=== PATIENT | female | born 1950 ===

== ENCOUNTER 2016-11-10 18:17 | Inpatient (IN) | payer MEDICARE ==
[2016-11-10 18:25] VITALS: BMI 36.6
[2016-11-10] MEDS ORDERED: Sodium Chloride 0.9% 1,000 ML IV STA (18:54)
[2016-11-10 19:41] LABS: BASO # 0.1 K/uL (0.0-0.2); BASO % 0.7 % (0.0-2.0); EOS # 0.6 K/uL (0.0-0.7); EOS % 8.7 % (0.0-4.0); HEMATOCRIT 38.5 % (34.0-47.0); LYMPH # 1.7 K/uL (1.0-4.3); LYMPH % 22.6 % (20.0-40.0); MEAN CELL VOLUME 89.7 fl (81.0-99.0); MEAN CORPUSCULAR HEMOGLOBIN 29.7 pg (27.0-31.0); MEAN CORPUSCULAR HGB CONC 33.1 g/dL (33.0-37.0); MEAN PLATELET VOLUME 7.8 fl (7.2-11.7); MONO # 0.6 K/uL (0.0-0.8); MONO % 8.5 % (0.0-10.0); NEUT # 4.3 K/uL (1.8-7.0); NEUT % 59.5 % (50.0-75.0); RED CELL DISTRIBUTION WIDTH 13.1 % (11.5-14.5); WHITE BLOOD COUNT 7.3 K/uL (4.8-10.8)
[2016-11-10] MEDS ORDERED: cefTRIAXone (Rocephin) 1 gm Inj ONE (19:46)
--- NOTE | 2016-11-10 19:48 | ED PDOC ---
HPI: General Adult Time Seen by Provider: 11/10/16 18:43 Chief Complaint (Nursing): Flu-like Symptoms Chief Complaint (Provider): Fever, Generalized Body Aches, & Productive Cough History Per: Patient History/Exam Limitations: no limitations Onset/Duration Of Symptoms: Days (ongoing for the past 8 days), Persistent Have you had recent travel within the past 21 days to any of the following countries: [place], [place], [place] or [place]?: Yes Other Location:: [facility] Current Symptoms Are (Timing): Still Present Severity: Moderate Context: patient referred from dr. figueredo's office for flu-like symptoms Location: generalized body aches, inclusive of diffuse chest and back pain Quality: pleuritic pain with a deep breath, worsened with lying flat Additional Complaint(s): Brittany Ulloa is a 66 year old female, with a past medical history of asthma and hypertension, who presents to the emergency department s/p being referred from Dr. Figueredo's office for a fever, generalized body aches, and a productive cough , that the patient has persistently been experiencing for the past 8 days. Patient reportedly takes baby Aspirin and Enalapril for her hypertension. Associated chills, diffuse, pleuritic chest pain, back pain, and shortness of breath, that is exacerbated when lying flat, are currently present. Denies nausea, vomiting, or diarrhea. Of note, patient uses an Albuterol pump as needed. PMD: Db Figueredo Past Medical History Reviewed: Historical Data, Nursing Documentation, Vital Signs Vital Signs: Last Vital Signs Temp 98.3 F 11/10/16 18:25 Pulse 105 H 11/10/16 18:25 Resp 19 11/10/16 18:25 BP 155/63 H 11/10/16 18:25 Pulse Ox 96 11/10/16 20:04 - Medical History PMH: Arthritis, Asthma, HTN, Hypercholesterolemia, Hyperlipidemia Denies: Chronic Kidney Disease - Surgical History Surgical History: Other surgeries: Total R Knee Replacement (06/07/2016) - Family History Family History: States: Hypertension, Other Other Family History: Pancreatic Cancer (mother) - Living Arrangements Living Arrangements: Alone - Social History Current smoker - smoking cessation education provided: No Ex-Smoker (has not smoked in the last 12 months): No Alcohol: None Drugs: Denies - Immunization History Hx Tetanus Toxoid Vaccination: No Hx Influenza Vaccination: Yes Hx Pneumococcal Vaccination: Yes - Home Medications Home Medications: Ambulatory Orders Medication Instructions Recorded Enalapril Maleate [Vasotec] 20 mg PO BID 07/25/15 Albuterol 0.083% [Albuterol 0.083% 3 ml IH TID PRN 08/06/15 Inhal Dee (2.5 mg/3 ml) UD] Albuterol HFA [Ventolin HFA 90 2 puff IH Q4H PRN 08/06/15 mcg/actuation (8 g)] Aspirin [[place] Aspirin] 81 mg PO DAILY 08/06/15 Atorvastatin Calcium [Lipitor] 10 mg PO HS 08/06/15 Ergocalciferol (Vitamin D2) 50,000 unit PO MO 08/06/15 [Vitamin D2] Fluticasone Propionate [Flonase] 1 spray REINALDO BID PRN 08/06/15 Omeprazole [Prilosec] 40 mg PO DAILY 08/06/15 Lactobacillus Acidophilus 1 each PO BID #60 capsule 08/09/15 [Acidophilus Lactobacillus] Methylprednisolone [Medrol Dose 4 mg PO DAILY #21 mg 08/09/15 Pack (21 tabs)] Celecoxib [celeBREX] 200 mg PO Q12 cap 06/09/16 Docusate [Colace] 100 mg PO BID cap 06/09/16 Ferrous Sulfate [Feosol] 325 mg PO BID tab 06/09/16 oxyCODONE [oxyCONTIN Extended 10 mg PO Q12 tabsr 06/09/16 Release Tab] oxyCODONE/Acetaminophen [Percocet 1 tab PO Q4 PRN #0 tab 06/09/16 5/325 mg Tab] Mirtazapine [Remeron] 7.5 mg PO HS 06/23/16 Pantoprazole [Protonix] 40 mg PO DAILY 06/23/16 - Allergies Allergies/Adverse Reactions: Allergies Allergy/AdvReac Type Severity Reaction Status Date / Time No Known Allergies Allergy Verified 06/09/16 14:46 Review of Systems ROS Statement: Except As Marked, All Systems Reviewed And Found Negative Constitutional: Positive for: Fever, Chills, Other (generalized body aches) Cardiovascular: Positive for: Chest Pain (diffuse) Respiratory: Positive for: Cough, Shortness of Breath, Pleuritic Pain, Sputum Gastrointestinal: Negative for: Nausea, Vomiting, Diarrhea Musculoskeletal: Positive for: Back Pain Physical Exam - Reviewed Nursing Documentation Reviewed: Yes Vital Signs Reviewed: Yes - Physical Exam Appears: Positive for: Well, Non-toxic, No Acute Distress Head Exam: Positive for: ATRAUMATIC, NORMOCEPHALIC Skin: Positive for: Normal Color, Warm, Dry ENT: Positive for: Normal ENT Inspection, Other (moist mucous membranes). Negative for: Pharyngeal Erythema, Tonsillar Exudate, Tonsillar Swelling Neck: Positive for: Normal, Painless ROM, Supple Cardiovascular/Chest: Positive for: Regular Rate, Rhythm. Negative for: Murmur Respiratory: Positive for: Crackles (b/l), Wheezing (inspiratory). Negative for : Normal Breath Sounds, Respiratory Distress Gastrointestinal/Abdominal: Positive for: Normal Exam, Soft. Negative for: Tenderness, Distended Back: Positive for: Normal Inspection. Negative for: L CVA Tenderness, R CVA Tenderness Extremity: Positive for: Normal ROM, Pedal Edema (pitting, 2+), Swelling, Other (scar on R knee). Negative for: Tenderness, Calf Tenderness Neurologic/Psych: Positive for: Alert, Oriented. Negative for: Motor/Sensory Deficits - Laboratory Results Result Diagrams: 11/10/16 19:30 11/10/16 19:30 - ECG O2 Sat by Pulse Oximetry: 96 (RA) Pulse Ox Interpretation: Normal Medical Decision Making Medical Decision Makin:43 Initial Impression: Upper respiratory tract infection Differential Diagnoses include, but are not limited to, asthma exacerbation, bronchitis, and pneumonia. Initial Plan: * Chest X-Ray * Venous Blood Gas Shock Panel * Complete Blood Count * Comprehensive Metabolic Panel * Lipase * Urine Dip * Urine * Sodium Chloride 0.9% 1,000 l IV at 1,000 mls/hr * Pepcid 20 mg IVP * Rocephin 1 gm IVPB * Toradol 30 mg IVP * Zofran 4 mg IVP * Blood Culture * Reevaluation Scribe Attestation: Documented by Ilya Sharp, acting as a scribe for Doreen Cortez MD. Provider Scribe Attestation: All medical record entries made by the Scribe were at my direction and personally dictated by me. I have reviewed the chart and agree that the record accurately reflects my personal performance of the history, physical exam, medical decision making, and the department course for this patient. I have also personally directed, reviewed, and agree with the discharge instructions and disposition. Disposition - Clinical Impression Clinical Impression: Shortness of breath - Patient ED Disposition Is Patient to be Admitted: Yes Doctor Will See Patient In The: Hospital - Disposition Disposition: Transfer of Care Disposition Time: 21:31 Condition: GUARDED - Pt Status Changed To: Hospital Disposition Of: Observation - POA Present On Arrival: None
[2016-11-10 19:49] LABS: VENOUS BLOOD GAS BASE EXCESS 1.4 mmol/L (0.0-2.0); VENOUS BLOOD GAS PCO2 49 mmHg (40-60); VENOUS BLOOD PH 7.36 (7.32-7.43)
[2016-11-10 19:51] LABS: ALB/GLOB RATIO 1.3 (1.0-2.1); ALKALINE PHOSPHATASE 108 U/L (38-126); ALT/SGPT 36 U/L (9-52); AST/SGOT 29 U/L (14-36); BILIRUBIN,TOTAL 0.3 mg/dl (0.2-1.3); BLOOD UREA NITROGEN 24 mg/dl (7-17); CALCIUM 9.2 mg/dL (8.4-10.2); CARBON DIOXIDE 23 mmol/L (22-30); CHLORIDE 104 mmol/L (98-107); GFR AFRICAN-AMERICAN > 60; GLUCOSE,RANDOM 104 mg/dL (65-105); POTASSIUM 3.8 MMOL/L (3.6-5.0); SODIUM 140 mmol/l (132-148)
[2016-11-10] MEDS ORDERED: Albuterol-Ipratrop 3 mg / 0.5 (3 ml) UD INH PRN (23:20)
[2016-11-10] MEDS ORDERED: Promethazine DM 6.25 mg-15 mg/5 ml Syrup PO SCH (23:25)
[2016-11-10] MEDS ORDERED: Albuterol HFA 90 mcg/actuation (8 g) INH PRN ×2 (23:33→23:53)
[2016-11-10] MEDS ORDERED: MethylPREDNISolone 40 mg Vial ONE (23:33)
[2016-11-10] MEDS: methylPREDNISolone 40 MG in Sodium Chloride 0.9% 50 ML IVPB SCH (23:57)
[2016-11-11] MEDS: Albuterol-Ipratrop 3 mg / 0.5 (3 ml) UD INH SCH ×4 (07:50→20:04)
[2016-11-11] MEDS: Pantoprazole 40 mg EC Tab PO SCH (08:45)
[2016-11-11] MEDS: Promethazine DM 12.5 mg-30 mg/10 ml Syrup PO SCH ×4 (08:45→22:12)
[2016-11-11] MEDS ORDERED: Patient's Own Med (Omeprazole [Omeprazole] 40 MG) PO SCH (09:00)
[2016-11-11] MEDS: methylPREDNISolone 40 MG in Sodium Chloride 0.9% 50 ML IVPB SCH ×2 (10:11→21:47)
--- NOTE | 2016-11-11 11:55 | RAD ---
HISTORY: cough COMPARISON: Comparison chest 08/06/2015. . TECHNIQUE: Chest PA and lateral FINDINGS: LUNGS: No active pulmonary disease. PLEURA: No significant pleural effusion identified. No pneumothorax apparent. CARDIOVASCULAR: Heart size normal. Calcified atherosclerotic plaque seen along the aortic knob OSSEOUS STRUCTURES: Probable old fracture deformity left distal clavicle with degenerative changes both shoulder girdles. Minor multilevel degenerative spondylosis of thoracic spine VISUALIZED UPPER ABDOMEN: Normal. OTHER FINDINGS: None. IMPRESSION: No acute cardiopulmonary disease.
--- NOTE | 2016-11-11 11:57 | CP.PCM.HP ---
History of Present Illness - History of Present Illness History of Present Illness: This is a 66 y/o female with hx of HTN was seen in my office yesterday for productive cough wheezing and low grade fever for the past week. She just came from a vacation in [facility]. She was given nebulizer treatment in the office but symptoms were persistent hence advised ER evaluation for pneumonia. CXR revealed bronchiitis and increased pulm markings. She was admitted for IV antibiotics , solumedrol. Present on Admission - Present on Admission Any Indicators Present on Admission: No History of DVT/PE: No History of Uncontrolled Diabetes: No Urinary Catheter: No Decubitus Ulcer Present: No Review of Systems - Respiratory Respiratory: Cough Past Patient History - Past Medical History & Family History Past Medical History?: Yes - Past Social History Smoking Status: Never Smoked - CARDIAC Hx Cardiac Disorders: Yes Hx Hypercholesterolemia: Yes Hx Hypertension: Yes - PULMONARY Hx Respiratory Disorders: Yes Hx Asthma: Yes Hx Bronchitis: Yes - NEUROLOGICAL Hx Neurological Disorder: No - HEENT Hx HEENT Problems: No - RENAL Hx Chronic Kidney Disease: No - ENDOCRINE/METABOLIC Hx Endocrine Disorders: No - HEMATOLOGICAL/ONCOLOGICAL Hx Blood Disorders: No Hx AIDS: No Hx Blood Transfusions: No Hx Blood Transfusion Reaction: No Hx Human Immunodeficiency Virus (HIV): No - INTEGUMENTARY Hx Dermatological Problems: No - MUSCULOSKELETAL/RHEUMATOLOGICAL Hx Musculoskeletal Disorders: Yes Hx Arthritis: Yes Hx Falls: No - GASTROINTESTINAL Hx Gastrointestinal Disorders: No - GENITOURINARY/GYNECOLOGICAL Hx Genitourinary Disorders: No - PSYCHIATRIC Hx Psychophysiologic Disorder: No Hx Substance Use: No - SURGICAL HISTORY Hx Surgeries: Yes (C/S) Hx Joint Replacement: Yes (06/07 right total knee replacement) - ANESTHESIA Hx Anesthesia: Yes (C/S) Hx Anesthesia Reactions: No Hx Malignant Hyperthermia: No Has any member of the family had a problem w/ anesthesia?: No Meds Allergies/Adverse Reactions: Allergies Allergy/AdvReac Type Severity Reaction Status Date / Time No Known Allergies Allergy Verified 06/09/16 14:46 Physical Exam - Head Exam Head Exam: NORMAL INSPECTION - Eye Exam Eye Exam: Normal appearance - ENT Exam ENT Exam: Mucous Membranes Moist - Respiratory Exam Respiratory Exam: Decreased Breath Sounds, Rhonchi, Wheezes - Cardiovascular Exam Cardiovascular Exam: REGULAR RHYTHM - GI/Abdominal Exam GI & Abdominal Exam: Normal Bowel Sounds - Neurological Exam Neurological exam: Oriented x3 - Psychiatric Exam Psychiatric exam: Normal Mood Results - Vital Signs Recent Vital Signs: Last Vital Signs Temp 98.2 F 11/11/16 07:43 Pulse 87 11/11/16 07:43 Resp 20 11/11/16 07:43 BP 155/85 H 11/11/16 07:43 Pulse Ox 95 11/11/16 07:43 - Labs Result Diagrams: 11/10/16 19:30 11/10/16 19:30 Assessment & Plan (1) Acute bronchitis Status: Acute (2) HTN (hypertension) Status: Chronic - Assessment and Plan (Free Text) Plan: Iv antibiotics nebulizer tx hydrate steroids.
[2016-11-12 08:11] VITALS: BP 117/69; PULSE 65; RESP 20; TEMP 98.3; O2SAT 95
[2016-11-12] MEDS: Pantoprazole 40 mg EC Tab PO SCH (08:23)
[2016-11-12] MEDS: methylPREDNISolone 40 MG in Sodium Chloride 0.9% 50 ML IVPB SCH (08:24)
[2016-11-12] MEDS: Albuterol-Ipratrop 3 mg / 0.5 (3 ml) UD INH SCH ×2 (08:41→11:41)
[2016-11-12] MEDS: Promethazine DM 12.5 mg-30 mg/10 ml Syrup PO SCH (12:28)
--- NOTE | 2016-11-12 12:34 | CP.PCM.DIS ---
Provider - Provider Date of Admission: 11/11/16 10:28 Attending physician: Db Hall MD Time Spent in preparation of Discharge (in minutes): 45 Diagnosis - Discharge Diagnosis (1) Acute bronchitis Status: Acute (2) HTN (hypertension) Status: Chronic Hospital Course - Lab Results Lab Results: Most Recent Lab Values WBC 7.3 K/uL (4.8-10.8) 11/10/16 19:30 RBC 4.29 Mil/uL (3.80-5.20) 11/10/16 19:30 Hgb 12.7 g/dL (12.0-16.0) 11/10/16 19:30 Hct 38.5 % (34.0-47.0) 11/10/16 19:30 MCV 89.7 fl (81.0-99.0) 11/10/16 19:30 MCH 29.7 pg (27.0-31.0) 11/10/16 19:30 MCHC 33.1 g/dL (33.0-37.0) 11/10/16 19:30 RDW 13.1 % (11.5-14.5) 11/10/16 19:30 Plt Count 247 K/uL (130-400) 11/10/16 19:30 MPV 7.8 fl (7.2-11.7) 11/10/16 19:30 Neut % (Auto) 59.5 % (50.0-75.0) 11/10/16 19:30 Lymph % (Auto) 22.6 % (20.0-40.0) 11/10/16 19:30 [place] % (Auto) 8.5 % (0.0-10.0) 11/10/16 19:30 Eos % (Auto) 8.7 % (0.0-4.0) H 11/10/16 19:30 Baso % (Auto) 0.7 % (0.0-2.0) 11/10/16 19:30 Neut # 4.3 K/uL (1.8-7.0) 11/10/16 19:30 Lymph # 1.7 K/uL (1.0-4.3) 11/10/16 19:30 Fallon # 0.6 K/uL (0.0-0.8) 11/10/16 19:30 Eos # 0.6 K/uL (0.0-0.7) 11/10/16 19:30 Baso # 0.1 K/uL (0.0-0.2) 11/10/16 19:30 pO2 26 mm/Hg (30-55) L 11/10/16 18:57 VBG pH 7.36 (7.32-7.43) 11/10/16 18:57 VBG pCO2 49 mmHg (40-60) 11/10/16 18:57 VBG HCO3 24.7 mmol/L 11/10/16 18:57 VBG Total CO2 29.2 mmol/L (22-28) H 11/10/16 18:57 VBG O2 Sat (Calc) 55.8 % (40-65) 11/10/16 18:57 VBG Base Excess 1.4 mmol/L (0.0-2.0) 11/10/16 18:57 VBG Potassium 3.7 mmol/L (3.6-5.2) 11/10/16 18:57 Sodium 139.0 mmol/L (132-148) 11/10/16 18:57 Chloride 106.0 mmol/L (98-107) 11/10/16 18:57 Glucose 98 mg/dL (65-105) 11/10/16 18:57 Lactate 1.1 mmol/L (0.7-2.1) 11/10/16 18:57 FiO2 21.0 % 11/10/16 18:57 Sodium 140 mmol/l (132-148) 11/10/16 19:30 Potassium 3.8 MMOL/L (3.6-5.0) 11/10/16 19:30 Chloride 104 mmol/L (98-107) 11/10/16 19:30 Carbon Dioxide 23 mmol/L (22-30) 11/10/16 19:30 Anion Gap 16 (10-20) 11/10/16 19:30 BUN 24 mg/dl (7-17) H 11/10/16 19:30 Creatinine 0.9 mg/dL (0.7-1.2) 11/10/16 19:30 Est GFR ( Amer) > 60 11/10/16 19:30 Est GFR (Non-Af Amer) > 60 11/10/16 19:30 Random Glucose 104 mg/dL (65-105) 11/10/16 19:30 Calcium 9.2 mg/dL (8.4-10.2) 11/10/16 19:30 Total Bilirubin 0.3 mg/dl (0.2-1.3) 11/10/16 19:30 AST 29 U/L (14-36) 11/10/16 19:30 ALT 36 U/L (9-52) 11/10/16 19:30 Alkaline Phosphatase 108 U/L (38-126) 11/10/16 19:30 Total Protein 8.0 G/DL (6.3-8.2) 11/10/16 19:30 Albumin 4.5 g/dL (3.5-5.0) 11/10/16 19:30 Globulin 3.4 gm/dL (2.2-3.9) 11/10/16 19:30 Albumin/Globulin Ratio 1.3 (1.0-2.1) 11/10/16 19:30 Venous Blood Potassium 3.7 mmol/L (3.6-5.2) 11/10/16 18:57 - Hospital Course Hospital Course: This is a 66 y/o female admitted for increasing cough and SOB. Cough was productive opf phlegm Seenin the office and was sent to ER for eval. Noted to have acute bronchiitis. Discharge Exam - Head Exam Head Exam: NORMAL INSPECTION - Eye Exam Eye Exam: Normal appearance - Respiratory Exam Respiratory Exam: NORMAL BREATHING PATTERN - Cardiovascular Exam Cardiovascular Exam: REGULAR RHYTHM - GI/Abdominal Exam GI & Abdominal Exam: Normal Bowel Sounds - Neurological Exam Neurological exam: CN II-XII Intact - Psychiatric Exam Psychiatric exam: Normal Mood Discharge Plan - Follow Up Plan Condition: GUARDED Disposition: HOME/ ROUTINE Additional Instructions: send on po antibiotics and cough meds Rx for enalapril 20 mg bid. follow up in 2 weeks.
[2016-11-13] MEDS ORDERED: Ergocalciferol 50,000 Intl Units Cap PO SCH (09:00)
== END 2016-11-12 13:57 | disposition home or self-care (01) | DRG 203 ==
LOC: H.ER 18:17 → H.ERHOLD 21:30 → H.MEDSURG1 22:35 → OBSVTOIN 11-11 10:28
PROVIDERS: ADMIT Family Medicine; ATTEND Family Medicine
PROC: 3E0F73Z Introduction of Anti-inflammatory into Respiratory Tract, Via Natural or Artificial Opening (ICD-10-PCS; principal; 2016-11-11)
DX: J20.9 Acute bronchitis, unspecified (principal); I10 Essential (primary) hypertension; E78.5 Hyperlipidemia, unspecified; E78.00 Pure hypercholesterolemia, unspecified; J45.909 Unspecified asthma, uncomplicated; M19.90 Unspecified osteoarthritis, unspecified site; Z96.651 Presence of right artificial knee joint; Z79.82 Long term (current) use of aspirin

== ENCOUNTER 2016-11-19 09:20 | Emergency (ER) | payer MEDICARE ==
[2016-11-19 09:20] VITALS: BMI 36.6
[2016-11-19 09:29] VITALS: TEMP 98.5
--- NOTE | 2016-11-19 10:46 | ED PDOC ---
HPI: Female Pain Time Seen by Provider: 11/19/16 09:44 Chief Complaint (Nursing): Female Genitourinary History Per: Patient History/Exam Limitations: no limitations Onset/Duration Of Symptoms: Gradual (today) Current Symptoms Are (Timing): Still Present Severity: Mild Quality Of Discomfort: Cramping Associated Symptoms: Urinary Symptoms (dysuria frequency). denies: Fever, Chills, Nausea, Vomiting, Constipation Alleviating Factors: None Additional History Per: Patient Additional Complaint(s): on bactrim for uri, now has urinary complaints Abnormal Vaginal Bleeding: No Past Medical History Reviewed: Historical Data, Nursing Documentation, Vital Signs Vital Signs: Last Vital Signs Temp 98.5 F 11/19/16 09:31 Pulse 81 11/19/16 09:31 Resp 18 11/19/16 09:31 BP 129/84 11/19/16 09:31 Pulse Ox 96 11/19/16 09:31 - Medical History PMH: Arthritis, Asthma, Bronchitis, HTN, Hypercholesterolemia, Hyperlipidemia Denies: HIV, Chronic Kidney Disease - Surgical History Surgical History: - Family History Family History: States: Hypertension - Living Arrangements Living Arrangements: With Family - Social History Current smoker - smoking cessation education provided: No - Immunization History Hx Tetanus Toxoid Vaccination: No Hx Influenza Vaccination: Yes Hx Pneumococcal Vaccination: Yes - Home Medications Home Medications: Ambulatory Orders Medication Instructions Recorded Albuterol HFA [Ventolin HFA 90 2 puff INH PRN PRN 11/10/16 mcg/actuation (8 g)] Aspirin [Ecotrin] 81 mg PO DAILY 11/10/16 Omeprazole 40 mg PO DAILY 11/10/16 Enalapril Maleate [Vasotec] 20 mg PO BID #60 11/12/16 Enalapril Maleate [Vasotec] 20 mg PO BID #60 tab 11/12/16 Amoxicillin/Clavulanate [Augmentin 1 tab PO BID #20 tab 11/19/16 875 MG-125 MG] - Allergies Allergies/Adverse Reactions: Allergies Allergy/AdvReac Type Severity Reaction Status Date / Time No Known Allergies Allergy Verified 11/19/16 09:25 Review of Systems ROS Statement: Except As Marked, All Systems Reviewed And Found Negative Constitutional: Negative for: Fever, Chills Cardiovascular: Negative for: Chest Pain, Palpitations Respiratory: Positive for: Cough. Negative for: Shortness of Breath Gastrointestinal: Negative for: Nausea, Vomiting, Abdominal Pain Genitourinary Female: Positive for: Dysuria, Frequency. Negative for: Hematuria , Vaginal Discharge, Vaginal Bleeding Neurological: Negative for: Weakness, Numbness Physical Exam - Reviewed Nursing Documentation Reviewed: Yes Vital Signs Reviewed: Yes - Physical Exam Appears: Positive for: Well, No Acute Distress Head Exam: Positive for: ATRAUMATIC, NORMAL INSPECTION, NORMOCEPHALIC Skin: Positive for: Normal Color, Warm, Dry Eye Exam: Positive for: Normal appearance, EOMI, PERRL Neck: Positive for: Normal, Painless ROM, Supple Cardiovascular/Chest: Positive for: Regular Rate, Rhythm, Chest Non Tender. Negative for: Edema, Gallop Respiratory: Positive for: Normal Breath Sounds. Negative for: Decreased Breath Sounds, Accessory Muscle Use, Crackles Gastrointestinal/Abdominal: Positive for: Normal Exam, Bowel Sounds, Soft. Negative for: Tenderness Back: Positive for: Normal Inspection. Negative for: L CVA Tenderness, R CVA Tenderness, Vertebral Tenderness Extremity: Positive for: Normal ROM. 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 Negative for: Motor/Sensory Deficits - Laboratory Results Urine dip results: Positive for: Leukocyte Esterase (pos), Nitrate (pos). Negative for: Glucose, Bilirubin - ECG O2 Sat by Pulse Oximetry: 96 Pulse Ox Interpretation: Normal - Progress ED Course And Treament: will treat for uti. Re-evaluation Time: 11:16 Condition: Improved Disposition - Clinical Impression Clinical Impression: Urinary tract infection - Patient ED Disposition Is Patient to be Admitted: No Counseled Patient/Family Regarding: Studies Performed, Diagnosis, Need For Followup, Rx Given - Disposition Referrals: Db Hall MD [Family Provider] - (or pmd in 2 days) Disposition: Routine/Home Disposition Time: 11:16 Condition: GOOD Prescriptions: Amoxicillin/Clavulanate [Augmentin 875 MG-125 MG] 1 tab PO BID #20 tab Instructions: Urinary Tract Infection in Women (ED) Print Language: PORTUGUESE
[2016-11-19] MEDS ORDERED: Amoxicillin-Clav 875-125 mg Tab PO ONE (11:16)
[2016-11-19] MEDS ORDERED: Amoxicillin-Clav 875-125 mg Tab PO STA (11:20)
[2016-11-19 11:34] VITALS: BP 126/85; PULSE 70; RESP 16; O2SAT 98
== END 2016-11-19 11:34 | disposition home or self-care (01) ==
LOC: H.ER 09:20
DX: N39.0 Urinary tract infection, site not specified (principal); E78.00 Pure hypercholesterolemia, unspecified; I10 Essential (primary) hypertension; J45.909 Unspecified asthma, uncomplicated; Z79.82 Long term (current) use of aspirin

== ENCOUNTER 2017-03-01 10:44 | Inpatient (IN) | payer MEDICARE ==
[2017-03-01 11:02] VITALS: BMI 31.2
[2017-03-01 11:51] LABS: BASO # 0.1 K/uL (0.0-0.2); BASO % 0.7 % (0.0-2.0); EOS # 0.5 K/uL (0.0-0.7); LYMPH # 1.5 K/uL (1.0-4.3); LYMPH % 21.2 % (20.0-40.0); MEAN CORPUSCULAR HEMOGLOBIN 30.6 pg (27.0-31.0); MEAN CORPUSCULAR HGB CONC 33.6 g/dL (33.0-37.0); MEAN PLATELET VOLUME 8.3 fl (7.2-11.7); MONO # 0.7 K/uL (0.0-0.8); MONO % 9.9 % (0.0-10.0); NEUT # 4.3 K/uL (1.8-7.0); NEUT % 61.2 % (50.0-75.0); NRBC % 0.1 % (0.0-0.0); RED CELL DISTRIBUTION WIDTH 12.8 % (11.5-14.5)
--- NOTE | 2017-03-01 11:57 | ED PDOC ---
HPI: Back Time Seen by Provider: 03/01/17 11:16 Chief Complaint (Nursing): Back Pain Chief Complaint (Provider): upper back pain History Per: Patient History/Exam Limitations: no limitations Additional Complaint(s): 66yo F in ED for eval of upper back pain radiating to right upper chest felt "deep inside" made worse with inspiration, walking and worsening over past couple of days with SOB, and epigastria pain without acute trauma to rib. denies hx of PE/DVT denies recent surgeries hormonal therapy Past Medical History Reviewed: Historical Data, Nursing Documentation, Vital Signs Vital Signs: Last Vital Signs Temp 98 F 03/01/17 10:59 Pulse 81 03/01/17 10:59 Resp 16 03/01/17 10:59 BP 124/77 03/01/17 10:59 Pulse Ox 98 03/01/17 11:06 - Medical History PMH: Arthritis, Asthma, Bronchitis, HTN, Hypercholesterolemia, Hyperlipidemia Denies: HIV, Chronic Kidney Disease - Surgical History Surgical History: - Family History Family History: States: Hypertension - Immunization History Hx Tetanus Toxoid Vaccination: No Hx Influenza Vaccination: Yes Hx Pneumococcal Vaccination: Yes - Home Medications Home Medications: Ambulatory Orders Medication Instructions Recorded Albuterol HFA [Ventolin HFA 90 2 puff INH PRN PRN 11/10/16 mcg/actuation (8 g)] Aspirin [Ecotrin] 81 mg PO DAILY 11/10/16 Omeprazole 40 mg PO DAILY 11/10/16 Enalapril Maleate [Vasotec] 20 mg PO BID #60 11/12/16 Enalapril Maleate [Vasotec] 20 mg PO BID #60 tab 11/12/16 Amoxicillin/Clavulanate [Augmentin 1 tab PO BID #20 tab 11/19/16 875 MG-125 MG] Fluconazole [Diflucan] 150 mg PO DAILY #2 tab 11/19/16 - Allergies Allergies/Adverse Reactions: Allergies Allergy/AdvReac Type Severity Reaction Status Date / Time No Known Allergies Allergy Verified 03/01/17 11:06 Review of Systems ROS Statement: Except As Marked, All Systems Reviewed And Found Negative Constitutional: Negative for: Fever, Chills Respiratory: Negative for: Cough Gastrointestinal: Negative for: Nausea, Vomiting, Abdominal Pain Physical Exam - Reviewed Nursing Documentation Reviewed: Yes Vital Signs Reviewed: Yes - Physical Exam Appears: Positive for: Well, Non-toxic, No Acute Distress Skin: Positive for: Normal Color, Warm, DRY Cardiovascular/Chest: Positive for: Regular Rate, Rhythm Respiratory: Positive for: CNT, Normal Breath Sounds Gastrointestinal/Abdominal: Positive for: Normal Exam. Negative for: Tenderness Back: Positive for: Other (mild tenderness to toucvh on upper back ) Extremity: Positive for: Normal ROM Neurologic/Psych: Positive for: Alert, Oriented - Laboratory Results Result Diagrams: 03/01/17 11:41 03/01/17 11:41 - ECG O2 Sat by Pulse Oximetry: 98 - CT Scan/US chest Other Rad Studies (CT/US): Radiology Report Reviewed US: abd Other Rad Studies (CT/US): Radiology Report Reviewed - Progress ED Course And Treament: PT will get eval of PE due to acute Chest pain not very reproducible with touch without acute trauma. ekg, cbc.cmp. Re-evaluation Time: 15:15 Condition: Improved Medical Decision Making Medical Decision Makinyo F with HTN, high cholesterol and c./o of acute Chest pain with radiation to back nonproducible without acute trauma will need admission for observation chest pain and repeat labs, eval under MD Isabel. Disposition - Clinical Impression Clinical Impression: Chest pain - Patient ED Disposition Is Patient to be Admitted: Yes - Disposition Disposition Time: 15:19 Condition: STABLE Forms: [facility] (Korean) - Pt Status Changed To: Hospital Disposition Of: Observation - POA Present On Arrival: None
[2017-03-01 12:01] LABS: ALB/GLOB RATIO 1.4 (1.0-2.1); ALKALINE PHOSPHATASE 84 U/L (38-126); ALT/SGPT 23 U/L (9-52); AST/SGOT 32 U/L (14-36); BILIRUBIN,TOTAL 0.7 mg/dl (0.2-1.3); BLOOD UREA NITROGEN 14 mg/dl (7-17); CALCIUM 8.5 mg/dL (8.4-10.2); CARBON DIOXIDE 22 mmol/L (22-30); CHLORIDE 109 mmol/L (98-107); GFR AFRICAN-AMERICAN > 60; GLUCOSE,RANDOM 93 mg/dL (65-105); SODIUM 140 mmol/l (132-148); TOTAL PROTEIN 7.1 G/DL (6.3-8.2)
[2017-03-01 12:27] LABS: RBC URINE < 1 /hpf (0-3); URINE BILIRUBIN NEGATIVE (NEGATIVE); URINE BLOOD NEGATIVE (NEGATIVE); URINE COLOR COLORLESS (YELLOW); URINE GLUCOSE (UA) NEG (Normal); URINE KETONE NEGATIVE (NEGATIVE); URINE LEUKOCYTE ESTERASE NEG Leu/uL (Negative); URINE PROTEIN NEGATIVE (NEGATIVE); URINE UROBILINOGEN 0.2-1.0 mg/dL (0.2-1.0); WBC URINE < 1 /hpf (0-5)
[2017-03-01] MEDS ORDERED: Sodium Chloride 0.9% 50 ML IV ONE (12:33)
[2017-03-01] MEDS ORDERED: Iodixanol 320 MG/ML 100 ML BOTTLE IV ONE (12:33)
[2017-03-01 12:52] LABS: POTASSIUM 4.9 MMOL/L (3.6-5.0)
--- NOTE | 2017-03-01 13:18 | RAD ---
PROCEDURE: Radiographs of the chest and bilateral ribs HISTORY: rib pain left side COMPARISON: Chest x-ray 11/10/2016 TECHNIQUE: Frontal radiograph of the chest and multiple oblique radiographs of the bilateral ribs were obtained. FINDINGS: RIGHT RIBS: No fracture or focal lesion visualized. LEFT RIBS: No fracture or focal lesion visualized. LUNGS: Clear. PLEURA: No pneumothorax or pleural fluid. CARDIOVASCULAR: Normal sized heart. No pulmonary vascular congestion. OTHER FINDINGS: None. IMPRESSION: Unremarkable radiographs of the chest and bilateral ribs. No rib fracture.
--- NOTE | 2017-03-01 13:28 | CT ---
PROCEDURE: CT Chest with contrast (Pulmonary Angiogram) HISTORY: COMPARISON: None available. TECHNIQUE: Axial computed tomography images were obtained of the chest in the pulmonary arterial phase of enhancement. Coronal and sagittal reformatted images were created and reviewed. Intravenous contrast dose: 80 cc Visipaque 320 Radiation dose: Total exam DLP = 383.05 mGy-cm. This CT exam was performed using one or more of the following dose reduction techniques: Automated exposure control, adjustment of the mA and/or kV according to patient size, and/or use of iterative reconstruction technique. FINDINGS: PULMONARY ARTERIES: Unremarkable. No pulmonary embolism. AORTA: No acute findings. No thoracic aortic aneurysm. LUNGS: No infiltrate. Mild nonspecific mosaic attenuation in the upper lobes common nonspecific. PLEURAL SPACES: Unremarkable. No effusion or pneuomothorax. HEART: Unremarkable. No cardiomegaly. No significant pericardial effusion. LYMPH NODES: No lymphadenopathy. BONES, CHEST WALL: Unremarkable. No fracture or destructive lesion OTHER FINDINGS: Unremarkable. IMPRESSION: Mild nonspecific mosaic attenuation in the upper lobes. No evidence of pulmonary embolism. The remainder of the examination is unremarkable.
--- NOTE | 2017-03-01 15:57 | US ---
HISTORY: epigastric pain COMPARISON: None. TECHNIQUE: Sonographic evaluation of the right upper quadrant of the abdomen. FINDINGS: LIVER: Measures 14.9 cm in length. Hepatopedal blood flow. Fatty infiltration manifest ultrasonographically as increased echogenicity of the liver parenchyma. No mass. No intrahepatic bile duct dilatation. GALLBLADDER: Cholelithiasis. Negative study for gallbladder wall thickening, pericholecystic fluid, sonographic Summers's sign. COMMON BILE DUCT: Measures 3.9 mm. No stones. No dilatation. PANCREAS: Unremarkable as visualized. No mass. No ductal dilatation. RIGHT KIDNEY: Measures 5.5 x 10.8 cm in length. Normal echogenicity. No calculus, mass, or hydronephrosis. AORTA: No aneurysmal dilatation. IVC: Unremarkable. OTHER FINDINGS: None . IMPRESSION: Cholelithiasis. No sonographic evidence of acute cholecystitis. Mild hepatic steatosis without focal abnormality
[2017-03-01] MEDS ORDERED: Alum-Mag Hydrox-Simethicone Susp (30 mL) PO ONE (16:33)
[2017-03-01] MEDS ORDERED: Alum-Mag Hydrox-Simethicone Susp (30 mL) ONE (16:39)
[2017-03-01] MEDS ORDERED: Albuterol HFA 90 mcg/actuation (8 g) INH PRN (22:39)
--- NOTE | 2017-03-02 07:56 | CP.PCM.CON ---
History of Present Illness - History of Present Illness History of Present Illness: consult noted. chart reviewed. echocardiogram ordered. will make formal consutation and recommendations based on echocardiogram. Past Patient History - Past Medical History & Family History Past Medical History?: Yes - Past Social History Smoking Status: Never Smoked - CARDIAC Hx Cardiac Disorders: Yes Hx Hypertension: Yes - PULMONARY Hx Asthma: Yes Hx Bronchitis: Yes - NEUROLOGICAL Hx Neurological Disorder: No - HEENT Hx HEENT Problems: No - RENAL Hx Chronic Kidney Disease: No - ENDOCRINE/METABOLIC Hx Endocrine Disorders: No - HEMATOLOGICAL/ONCOLOGICAL Hx AIDS: No Hx Human Immunodeficiency Virus (HIV): No - INTEGUMENTARY Hx Dermatological Problems: No - MUSCULOSKELETAL/RHEUMATOLOGICAL Hx Arthritis: Yes Hx Falls: No - GASTROINTESTINAL Hx Gastrointestinal Disorders: No - GENITOURINARY/GYNECOLOGICAL Hx Genitourinary Disorders: No - PSYCHIATRIC Hx Psychophysiologic Disorder: No Hx Substance Use: No - SURGICAL HISTORY Hx Surgeries: Yes (C/S) Hx Joint Replacement: Yes (06/07 right total knee replacement) - ANESTHESIA Hx Anesthesia: Yes (C/S) Hx Anesthesia Reactions: No Hx Malignant Hyperthermia: No Meds Allergies/Adverse Reactions: Allergies Allergy/AdvReac Type Severity Reaction Status Date / Time No Known Allergies Allergy Verified 03/01/17 11:06 - Medications Medications: Current Medications Albuterol (Ventolin Hfa 90 Mcg/Actuation (8 G)) 2 puff INH Q4H PRN PRN Reason: Shortness of Breath Aspirin (Ecotrin) 81 mg PO DAILY [facility] Atorvastatin Calcium (Lipitor) 10 mg PO DAILY [facility] Enalapril Maleate (Vasotec) 20 mg PO BID [facility] Loratadine (Claritin) 10 mg PO DAILY PRN PRN Reason: ALLERGY SYMPTOMS Results - Vital Signs Recent Vital Signs: Last Vital Signs Temp 98.5 F 03/02/17 05:00 Pulse 71 03/02/17 05:00 Resp 19 03/02/17 05:00 BP 105/60 03/02/17 05:00 Pulse Ox 96 03/02/17 05:00 - Labs Result Diagrams: 03/01/17 11:41 03/01/17 11:41 Labs: Laboratory Results - last 24 hr 03/02/17 00:10 Troponin I < 0.0120
[2017-03-02] MEDS ORDERED: Iohexol 240 (50 ml) PO ONE (09:08)
[2017-03-02] MEDS ORDERED: Oxycodone/Acetaminophen 5/325 mg Tab PO PRN (09:10)
--- NOTE | 2017-03-02 09:21 | CARD ---
APPROVED REPORT EKG Measurement Heart [id number] <Conclusion> Normal sinus rhythm Normal ECG
--- NOTE | 2017-03-02 11:00 | CP.PCM.HP ---
History of Present Illness - History of Present Illness History of Present Illness: This is a 66 y/o female admitted for left chest wall pain and LUQ pain radiating to the back. Claims that symptoms have been progressive for the past week but worsened in the past two days despite use of analgesics. hence sought ER evaluation. She has a hx of HTN arthritis hyperlipidemia. Present on Admission - Present on Admission Any Indicators Present on Admission: No History of DVT/PE: No History of Uncontrolled Diabetes: No Urinary Catheter: No Decubitus Ulcer Present: No Review of Systems - Musculoskeletal Musculoskeletal: Arthralgias, Back Pain Past Patient History - Past Medical History & Family History Past Medical History?: Yes - Past Social History Smoking Status: Never Smoked - CARDIAC Hx Cardiac Disorders: Yes Hx Hypertension: Yes - PULMONARY Hx Asthma: Yes Hx Bronchitis: Yes - NEUROLOGICAL Hx Neurological Disorder: No - HEENT Hx HEENT Problems: No - RENAL Hx Chronic Kidney Disease: No - ENDOCRINE/METABOLIC Hx Endocrine Disorders: No - HEMATOLOGICAL/ONCOLOGICAL Hx AIDS: No Hx Human Immunodeficiency Virus (HIV): No - INTEGUMENTARY Hx Dermatological Problems: No - MUSCULOSKELETAL/RHEUMATOLOGICAL Hx Arthritis: Yes Hx Falls: No - GASTROINTESTINAL Hx Gastrointestinal Disorders: No - GENITOURINARY/GYNECOLOGICAL Hx Genitourinary Disorders: No - PSYCHIATRIC Hx Psychophysiologic Disorder: No Hx Substance Use: No - SURGICAL HISTORY Hx Surgeries: Yes (C/S) Hx Joint Replacement: Yes (06/07 right total knee replacement) - ANESTHESIA Hx Anesthesia: Yes (C/S) Hx Anesthesia Reactions: No Hx Malignant Hyperthermia: No Meds Allergies/Adverse Reactions: Allergies Allergy/AdvReac Type Severity Reaction Status Date / Time No Known Allergies Allergy Verified 03/01/17 11:06 Physical Exam - Head Exam Head Exam: NORMAL INSPECTION - Eye Exam Eye Exam: Normal appearance - ENT Exam ENT Exam: Mucous Membranes Moist - Respiratory Exam Respiratory Exam: Clear to Auscultation Bilateral - Cardiovascular Exam Cardiovascular Exam: REGULAR RHYTHM - GI/Abdominal Exam GI & Abdominal Exam: Normal Bowel Sounds - Extremities Exam Extremities exam: Positive for: normal inspection - Back Exam Additional comments: tenderness on the left midback area lower rib cage area. - Neurological Exam Neurological exam: CN II-XII Intact, Oriented x3 - Psychiatric Exam Psychiatric exam: Normal Mood Results - Vital Signs Recent Vital Signs: Last Vital Signs Temp 98.1 F 03/02/17 08:00 Pulse 73 03/02/17 08:00 Resp 20 03/02/17 08:00 BP 129/79 03/02/17 08:00 Pulse Ox 93 L 03/02/17 08:00 - Labs Result Diagrams: 03/01/17 11:41 03/01/17 11:41 Labs: Laboratory Results - last 24 hr 03/02/17 03/02/17 00:10 07:35 Troponin I < 0.0120 < 0.0120 Assessment & Plan (1) Chest pain Status: Acute (2) Costochondritis, acute Status: Acute (3) Muscle spasm Status: Acute (4) HTN (hypertension) Status: Chronic - Assessment and Plan (Free Text) Plan: start pain meds cardiology eval troponin cont all home meds.
--- NOTE | 2017-03-02 11:58 | CARD ---
APPROVED REPORT EXAM: Two-dimensional and M-mode echocardiogram with Doppler and color Doppler. Other Information Quality : GoodRhythm : NSR INDICATION Chest Pain 2D DIMENSIONS IVSd0.85 (0.7-1.1cm)LVDd4.36 (3.9-5.9cm) LVOT Diameter2.36 (1.8-2.4cm)PWd0.84 (0.7-1.1cm) IVSs1.15 (0.8-1.2cm)LVDs2.88 (2.5-4.0cm) FS (%) 33.9 %PWs1.05 (0.8-1.2cm) M-Mode DIMENSIONS Left Atrium (MM)3.78 (2.5-4.0cm)IVSd0.78 (0.7-1.1cm) Aortic Root2.97 (2.2-3.7cm)LVDd6.16 (4.0-5.6cm) Aortic Cusp Exc.1.66 (1.5-2.0cm)PWd0.91 (0.7-1.1cm) IVSs1.38 cmFS (%) 55 % LVDs2.78 (2.0-3.8cm)PWs1.34 cm Mitral Valve MV E Zekdfmfb49.5cm/sMV DECEL [id number] A Oighbbiz35.6cm/s MV BNS26aaP/A ratio0.9MVA (PHT)3.70cm2 TDI Lateral E' Peak V10.92cm/sMedial E' Peak V8.96cm/sE/Lateral E'8.2 E/Medial E'10.0 Pulmonary Valve PV Peak Zvtkiuyq070.5cm/s LEFT VENTRICLE The left ventricle is normal size. There is normal left ventricular wall thickness. Left ventricle systolic function is normal. The Ejection Fraction is 65-70%. There is normal LV segmental wall motion. Transmitral Doppler flow pattern is Grade I-abnormal relaxation pattern. RIGHT VENTRICLE The right ventricle is normal size. There is normal right ventricular wall thickness. The right ventricular systolic function is normal. ATRIA The left atrium size is normal. The right atrium size is normal. AORTIC VALVE The aortic valve is normal in structure. There is mild aortic regurgitation. There is no aortic valvular stenosis. MITRAL VALVE The mitral valve is normal in structure and function. There is no evidence of mitral valve prolapse. There is no mitral valve stenosis. There is no mitral valve regurgitation noted. TRICUSPID VALVE The tricuspid valve is normal in structure and function. There is no tricuspid valve regurgitation noted. PULMONIC VALVE The pulmonary valve is normal in structure and function. There is no pulmonic valvular regurgitation. GREAT VESSELS The aortic root is normal in size. The IVC is normal in size and collapses >50% with inspiration. PERICARDIAL EFFUSION The pericardium appears normal. <Conclusion> The left ventricle is normal size. There is normal left ventricular wall thickness. There is normal LV segmental wall motion. Left ventricle systolic function is normal. The Ejection Fraction is 65-70%. Transmitral Doppler flow pattern is Grade I-abnormal relaxation pattern.
[2017-03-02] MEDS ORDERED: Iohexol 300 100 ML IJ ONE (13:41)
[2017-03-02] MEDS ORDERED: Sodium Chloride 0.9% 50 ML IV ONE (13:41)
--- NOTE | 2017-03-02 14:28 | CT ---
PROCEDURE: CT Abdomen and Pelvis with contrast HISTORY: Abd pain, L ? palpable mass, tenderness COMPARISON: 02/19/2010. TECHNIQUE: Contrast dose: 100 cc of Omnipaque Radiation dose: Total exam DLP = 967 mGy-cm. This CT exam was performed using one or more of the following dose reduction techniques: Automated exposure control, adjustment of the mA and/or kV according to patient size, and/or use of iterative reconstruction technique. FINDINGS: LOWER THORAX: Unremarkable. LIVER: Unremarkable. No gross lesion or ductal dilatation. GALLBLADDER AND BILE DUCTS: Unremarkable. PANCREAS: Unremarkable. No gross lesion or ductal dilatation. SPLEEN: Unremarkable. ADRENALS: Unremarkable. No mass. KIDNEYS AND URETERS: Unremarkable. No hydronephrosis. No solid mass. VASCULATURE: Unremarkable. No aortic aneurysm. BOWEL: Colonic diverticulosis. No obstruction. No gross mural thickening. APPENDIX: Normal appendix. PERITONEUM: Unremarkable. No free fluid. No free air. LYMPH NODES: Unremarkable. No enlarged lymph nodes. BLADDER: Unremarkable. REPRODUCTIVE: Hysterectomy. BONES: Mild wedge compression deformities of L1 and L2. OTHER FINDINGS: None. IMPRESSION: No evidence of mass. Colonic diverticulosis. Hysterectomy.
--- NOTE | 2017-03-02 17:56 | CP.PCM.CON ---
History of Present Illness - History of Present Illness History of Present Illness: I was asked to see patient by Dr. Hall. Patient is a 66 year old female with PMH HTN, who presenst with chest pain. She describes chest pain which began one week ago. It first started in her left upper back then radiated to her chest . She came in due to intermittent chest pain.She has dyspnea at times on exertion. Review of Systems - Constitutional Constitutional: absent: As Per HPI, Anorexia, Chills, Daytime Sleepiness, Excessive Sweating, Fatigue, Fever, Frequent Falls, Headache, Increased Appetite , Lethargy, Malaise, Night Sweats, Snoring, Sleep Apnea, Weight Gain, Weight Loss, Weakness, Other - EENT Eyes: absent: As Per HPI, Blind Spots, Blurred Vision, Change in Vision, Decreased Night Vision, Diplopia, Discharge, Dry Eye, Exophthalmos, Floaters, Irritation, Itchy Eyes, Loss of Peripheral Vision, Pain, Photophobia, Requires Corrective Lenses, Sees Flashes, Spots in Vision, Tunnel Vision, Other Visual Disturbances, Loss of Vision, Other Ears: absent: As Per HPI, Decreased Hearing, Ear Discharge, Ear Pain, Tinnitus, Abnormal Hearing, Disequilibrium, Dizziness, Other Nose/Mouth/Throat: absent: As Per HPI, Epistaxis, Nasal Congestion, Nasal Discharge, Nasal Obstruction, Nasal Trauma, Nose Pain, Post Nasal Drip, Sinus Pain, Sinus Pressure, Bleeding Gums, Change in Voice, Dental Pain, Dry Mouth, Dysphagia, Halitosis, Hoarsness, Lip Swelling, Mouth Lesions, Mouth Pain, Odynophagia, Sore Throat, Throat Swelling, Tongue Swelling, Facial Pain, Neck Pain, Neck Mass, Other - Breasts Breasts: absent: As Per HPI, Change in Shape, Mass, Pain, Nipple Discharge, Nipple Inversion, Skin Changes, Swelling, Other - Cardiovascular Cardiovascular: absent: As Per HPI, Acrocyanosis, Chest Pain, Chest Pain at Rest , Chest Pain with Activity, Claudication, Diaphoresis, Dyspnea, Dyspnea on Exertion, Edema, Irregular Heart Rhythm, Pain Radiating to Arm/Neck/Jaw, Leg Edema, Leg Ulcers, Lightheadedness, Orthopnea, Palpitations, Paroxysmal Nocturnal Dyspnea, Pedal Edema, Radiating Pain, Rapid Heart Rate, Slow Heart Rate, Syncope, Other - Respiratory Respiratory: absent: As Per HPI, Cough, Dyspnea, Hemoptysis, Dyspnea on Exertion , Wheezing, Snoring, Stridor, Pain on Inspiration, Chest Congestion, Excessive Mucous Production, Change in Mucous Color, Pain with Coughing, Other - Gastrointestinal Gastrointestinal: absent: As Per HPI, Abdominal Pain, Belching, Bloating, Change in Bowel Habits, Change in Stool Character, Coffee Ground Emesis, Constipation, Cramping, Diarrhea, Dyspepsia, Dysphagia, Early Satiety, Excessive Flatus, Fecal Incontinence, Heartburn, Hematemesis, Hematochezia, Loose Stools, Melena, Nausea, Odynophagia, Temesmus, Vomiting, Other - Musculoskeletal Musculoskeletal: absent: As Per HPI, Abnormal Gait, Arthralgias, Atrophy, Back Pain, Deformity, Joint Swelling, Limited Range of Motion, Loss of Height, Muscle Cramps, Muscle Weakness, Myalgias, Neck Pain, Numbness, Radiating Pain into Limb, Stiffness, Tingling, Other - Integumentary Integumentary: absent: As Per HPI, Acne, Alopecia, Bleeding Lesions, Change in Hair, Change in Nails, Change in Pigmentation, Changing Lesions, Dry Skin, Erythema, Furuncle, Hirsutism, Lesions, New Lesions, Non-Healing Lesions, Photosensitivity, Pruritus, Rash, Skin Pain, Skin Ulcer, Sores, Striae, Swelling , Unusual Bruising, Wounds, Jaundice, Other - Neurological Neurological: absent: As Per HPI, Abnormal Gait, Abnormal Hearing, Abnormal Movements, Abnormal Speech, Behavioral Changes, Burning Sensations, Confusion, Convulsions, Disequilibrium, Dizziness, Numbness, Focal Weakness, Frequent Falls , Headaches, Lack of Coordination, Loss of Vision, Memory Loss, Paresthesias, Radicular Pain, Restless Legs, Sensory Deficit, Syncope, Tingling, Tremor, Vertigo, Weakness, Other Visual Disturbances, Other - Psychiatric Psychiatric: absent: As Per HPI, Abnormal Sleep Pattern, Anhedonia, Anxiety, Auditory Hallucinations, Behavioral Changes, Change in Appetite, Change in Libido, Confusion, Depression, Difficulty Concentrating, Hallucinations, Homicidal Ideation, Hopelessness, Irritability, Memory Loss, Mood Swings, Panic Attacks, Paranoia, Suicidal Ideation, Visual Hallucinations, Tactile Hallucinations, Other - Endocrine Endocrine: absent: As Per HPI, Change in Body Appearance, Change in Libido, Cold Intolorance, Deepening of Voice, Excessive Sweating, Fatigue, Flushing, Heat Intolorance, Increase in Ring/Shoe/Hat Size, Palpitations, Polydipsia, Polyphagia, Polyuria, Other - Hematologic/Lymphatic Hematologic: absent: As Per HPI, Easy Bleeding, Easy Bruising, Lymphadenopathy, Other Past Patient History - Past Medical History & Family History Past Medical History?: Yes - Past Social History Smoking Status: Never Smoked - CARDIAC Hx Cardiac Disorders: Yes Hx Hypertension: Yes - PULMONARY Hx Asthma: Yes Hx Bronchitis: Yes - NEUROLOGICAL Hx Neurological Disorder: No - HEENT Hx HEENT Problems: No - RENAL Hx Chronic Kidney Disease: No - ENDOCRINE/METABOLIC Hx Endocrine Disorders: No - HEMATOLOGICAL/ONCOLOGICAL Hx AIDS: No Hx Human Immunodeficiency Virus (HIV): No - INTEGUMENTARY Hx Dermatological Problems: No - MUSCULOSKELETAL/RHEUMATOLOGICAL Hx Arthritis: Yes Hx Falls: No - GASTROINTESTINAL Hx Gastrointestinal Disorders: No - GENITOURINARY/GYNECOLOGICAL Hx Genitourinary Disorders: No - PSYCHIATRIC Hx Psychophysiologic Disorder: No Hx Substance Use: No - SURGICAL HISTORY Hx Surgeries: Yes (C/S) Hx Joint Replacement: Yes (06/07 right total knee replacement) - ANESTHESIA Hx Anesthesia: Yes (C/S) Hx Anesthesia Reactions: No Hx Malignant Hyperthermia: No Meds Allergies/Adverse Reactions: Allergies Allergy/AdvReac Type Severity Reaction Status Date / Time No Known Allergies Allergy Verified 03/01/17 11:06 - Medications Medications: Current Medications Albuterol (Ventolin Hfa 90 Mcg/Actuation (8 G)) 2 puff INH Q4H PRN PRN Reason: Shortness of Breath Aspirin (Ecotrin) 81 mg PO DAILY [facility] Last Admin: 03/02/17 09:06 Dose: 81 mg Atorvastatin Calcium (Lipitor) 10 mg PO DAILY [facility] Last Admin: 03/02/17 09:05 Dose: 10 mg Docusate Sodium (Colace) 100 mg PO BID [facility] Last Admin: 03/02/17 16:42 Dose: 100 mg Enalapril Maleate (Vasotec) 20 mg PO BID [facility] Last Admin: 03/02/17 16:41 Dose: 20 mg Ibuprofen (Motrin Tab) 600 mg PO Q8 PRN PRN Reason: Pain, Mild (1-3) Loratadine (Claritin) 10 mg PO DAILY PRN PRN Reason: ALLERGY SYMPTOMS Oxycodone/Acetaminophen (Percocet 5/325 Mg Tab) 1 tab PO Q4 PRN PRN Reason: Pain, moderate (4-7) Stop: 03/05/17 09:11 Last Admin: 03/02/17 15:46 Dose: 1 tab Physical Exam - Constitutional Appears: Non-toxic - Head Exam Head Exam: NORMAL INSPECTION - Eye Exam Eye Exam: Normal appearance - ENT Exam ENT Exam: Mucous Membranes Moist - Neck Exam Neck exam: Positive for: Full Rom - Respiratory Exam Respiratory Exam: NORMAL BREATHING PATTERN - Cardiovascular Exam Cardiovascular Exam: REGULAR RHYTHM - GI/Abdominal Exam GI & Abdominal Exam: Normal Bowel Sounds - Rectal Exam Rectal Exam: Deferred - Extremities Exam Extremities exam: Negative for: pedal edema - Back Exam Back exam: NORMAL INSPECTION - Neurological Exam Neurological exam: Alert, Oriented x3 - Psychiatric Exam Psychiatric exam: Normal Affect - Skin Skin Exam: Normal Color Results - Vital Signs Recent Vital Signs: Last Vital Signs Temp 97.7 F 03/02/17 17:00 Pulse 69 03/02/17 17:00 Resp 14 03/02/17 17:00 BP 120/66 03/02/17 17:00 Pulse Ox 98 03/02/17 17:00 - Labs Result Diagrams: 03/01/17 11:41 03/01/17 11:41 Labs: Laboratory Results - last 24 hr 03/02/17 03/02/17 00:10 07:35 Troponin I < 0.0120 < 0.0120 - EKG Data EKG Interpreted by: Myself EKG shows normal: Sinus rhythm Assessment & Plan (1) Chest pain Assessment and Plan: patient ruled out for myocardial infarction. Cardiac enzymes are normal. The echocardiogram reveals normal left ventricular function. The patient's symptoms have improved. Ther patient is stable for discharge from a cardiac standpoint. Patient will be scheduled for an outpatient stress test. Status: Acute (2) HTN (hypertension) Assessment and Plan: blood pressure control Status: Chronic (3) Hyperlipidemia Assessment and Plan: statin therapy Status: Chronic
[2017-03-03 05:29] VITALS: RESP 20
[2017-03-03 08:24] VITALS: TEMP 98.1; O2SAT 96
[2017-03-03 08:30] VITALS: BP 118/65
[2017-03-03 08:33] VITALS: PULSE 70
--- NOTE | 2017-03-03 09:41 | CP.PCM.DIS ---
Provider - Provider Date of Admission: 03/02/17 15:30 Attending physician: Db Hall MD Time Spent in preparation of Discharge (in minutes): 30 Hospital Course - Lab Results Lab Results: Most Recent Lab Values WBC 7.0 K/uL (4.8-10.8) 03/01/17 11:41 RBC 4.18 Mil/uL (3.80-5.20) 03/01/17 11:41 Hgb 12.8 g/dL (12.0-16.0) 03/01/17 11:41 Hct 38.0 % (34.0-47.0) 03/01/17 11:41 MCV 91.0 fl (81.0-99.0) 03/01/17 11:41 MCH 30.6 pg (27.0-31.0) 03/01/17 11:41 MCHC 33.6 g/dL (33.0-37.0) 03/01/17 11:41 RDW 12.8 % (11.5-14.5) 03/01/17 11:41 Plt Count 251 K/uL (130-400) 03/01/17 11:41 MPV 8.3 fl (7.2-11.7) 03/01/17 11:41 Neut % (Auto) 61.2 % (50.0-75.0) 03/01/17 11:41 Lymph % (Auto) 21.2 % (20.0-40.0) 03/01/17 11:41 [place] % (Auto) 9.9 % (0.0-10.0) 03/01/17 11:41 Eos % (Auto) 7.0 % (0.0-4.0) H 03/01/17 11:41 Baso % (Auto) 0.7 % (0.0-2.0) 03/01/17 11:41 Neut # 4.3 K/uL (1.8-7.0) 03/01/17 11:41 Lymph # 1.5 K/uL (1.0-4.3) 03/01/17 11:41 [place] # 0.7 K/uL (0.0-0.8) 03/01/17 11:41 Eos # 0.5 K/uL (0.0-0.7) 03/01/17 11:41 Baso # 0.1 K/uL (0.0-0.2) 03/01/17 11:41 Sodium 140 mmol/l (132-148) 03/01/17 11:41 Potassium 4.9 MMOL/L (3.6-5.0) 03/01/17 11:41 Chloride 109 mmol/L (98-107) H 03/01/17 11:41 Carbon Dioxide 22 mmol/L (22-30) 03/01/17 11:41 Anion Gap 14 (10-20) 03/01/17 11:41 BUN 14 mg/dl (7-17) 03/01/17 11:41 Creatinine 0.6 mg/dL (0.7-1.2) L 03/01/17 11:41 Est GFR ( Amer) > 60 03/01/17 11:41 Est GFR (Non-Af Amer) > 60 03/01/17 11:41 Random Glucose 93 mg/dL (65-105) 03/01/17 11:41 Calcium 8.5 mg/dL (8.4-10.2) 03/01/17 11:41 Total Bilirubin 0.7 mg/dl (0.2-1.3) 03/01/17 11:41 AST 32 U/L (14-36) 03/01/17 11:41 ALT 23 U/L (9-52) 03/01/17 11:41 Alkaline Phosphatase 84 U/L (38-126) 03/01/17 11:41 Troponin I < 0.0120 ng/mL (0.00-0.120) 03/02/17 07:35 Total Protein 7.1 G/DL (6.3-8.2) 03/01/17 11:41 Albumin 4.1 g/dL (3.5-5.0) 03/01/17 11:41 Globulin 3.0 gm/dL (2.2-3.9) 03/01/17 11:41 Albumin/Globulin Ratio 1.4 (1.0-2.1) 03/01/17 11:41 Urine Color Colorless (YELLOW) 03/01/17 12:21 Urine Clarity Clear (Clear) 03/01/17 12:21 Urine pH 7.0 (5.0-8.0) 03/01/17 12:21 Ur Specific [place] < 1.005 (1.003-1.030) 03/01/17 12:21 Urine Protein Negative mg/dL (NEGATIVE) 03/01/17 12:21 Urine Glucose (UA) Neg mg/dL (Normal) 03/01/17 12:21 Urine Ketones Negative mg/dL (NEGATIVE) 03/01/17 12:21 Urine Blood Negative (NEGATIVE) 03/01/17 12:21 Urine Nitrate Negative (NEGATIVE) 03/01/17 12:21 Urine Bilirubin Negative (NEGATIVE) 03/01/17 12:21 Urine Urobilinogen 0.2-1.0 mg/dL (0.2-1.0) 03/01/17 12:21 Ur Leukocyte Esterase Neg [place]/uL (Negative) 03/01/17 12:21 Urine RBC (Auto) < 1 /hpf (0-3) 03/01/17 12:21 Urine Microscopic WBC < 1 /hpf (0-5) 03/01/17 12:21 Ur Squamous Epith Cells 1 /hpf (0-5) 03/01/17 12:21 - Hospital Course Hospital Course: This is a 66 y/o female admitted for chest wall pain and LUQ pain radiating to the left midback fo few days. Admitted as chest pain. All troponins were negative and EKG was unremarkable. She was seen by Cardiology and maintained on pain meds. She was sent home on NSAID's and advised follow up in 2 weeks. Discharge Exam - Head Exam Head Exam: NORMAL INSPECTION - Eye Exam Eye Exam: Normal appearance - Respiratory Exam Respiratory Exam: Chest Wall Tenderness, NORMAL BREATHING PATTERN - Cardiovascular Exam Cardiovascular Exam: REGULAR RHYTHM - GI/Abdominal Exam GI & Abdominal Exam: Normal Bowel Sounds - Neurological Exam Neurological exam: CN II-XII Intact, Oriented x3 - Psychiatric Exam Psychiatric exam: Normal Mood Discharge Plan - Follow Up Plan Condition: STABLE Disposition: HOME/ ROUTINE Additional Instructions: advised follow up Rx Naprosyn and protonix
== END 2017-03-03 11:00 | disposition home or self-care (01) | DRG 206 ==
LOC: H.ER 10:44 → H.ERHOLD 15:33 → H.TEL 18:48 → OBSVTOIN 03-02 15:30
PROVIDERS: ADMIT Family Medicine; ATTEND Family Medicine
DX: M94.0 Chondrocostal junction syndrome [Tietze] (principal); I10 Essential (primary) hypertension; E78.5 Hyperlipidemia, unspecified; M19.90 Unspecified osteoarthritis, unspecified site; M62.838 Other muscle spasm; R10.12 Left upper quadrant pain; Z96.651 Presence of right artificial knee joint

== ENCOUNTER 2018-09-10 18:08 | Inpatient (IN) | payer MEDICARE ==
[2018-09-10 20:22] LABS: BASO # 0.1 K/uL (0.0-0.2); BASO % 0.6 % (0.0-2.0); EOS # 0.3 K/uL (0.0-0.7); EOS % 3.5 % (0.0-4.0); HEMOGLOBIN 13.3 g/dL (12.0-16.0); LYMPH # 1.6 K/uL (1.0-4.3); MEAN CELL VOLUME 88.6 fl (81.0-99.0); MEAN CORPUSCULAR HEMOGLOBIN 29.8 pg (27.0-31.0); MEAN CORPUSCULAR HGB CONC 33.7 g/dL (33.0-37.0); MEAN PLATELET VOLUME 7.9 fl (7.2-11.7); MONO # 0.7 K/uL (0.0-0.8); MONO % 7.6 % (0.0-10.0); NEUT # 6.3 K/uL (1.8-7.0); NEUT % 70.3 % (50.0-75.0); RBC 4.44 Mil/uL (3.80-5.20)
[2018-09-10 20:31] LABS: SQUAMOUS EPITHIAL 1 /hpf (0-5); URINE BACTERIA RARE (<OCC); URINE BILIRUBIN NEGATIVE (NEGATIVE); URINE COLOR AMBER (YELLOW); URINE GLUCOSE (UA) NEG (NEGATIVE); URINE LEUKOCYTE ESTERASE SMALL Leu/uL (Negative); URINE PROTEIN NEGATIVE (NEGATIVE)
[2018-09-10 20:33] LABS: URINE BLOOD TRACE (NEGATIVE); URINE CLARITY SLIGHT-CLOUDY (Clear)
[2018-09-10 20:35] LABS: ALB/GLOB RATIO 1.3 (1.0-2.1); ALBUMIN 4.2 g/dL (3.5-5.0); ALT/SGPT 28 U/L (9-52); AST/SGOT 26 U/L (14-36); BLOOD UREA NITROGEN 17 mg/dl (7-17); CALCIUM 9.2 mg/dL (8.4-10.2); GFR NON-AFRICAN AMERICAN > 60
[2018-09-10] MEDS ORDERED: cefTRIAXone (Rocephin) 1 gm Inj ONE (20:59)
--- NOTE | 2018-09-10 21:46 | ED PDOC ---
HPI: Female Pain Time Seen by Provider: 09/10/18 19:24 Chief Complaint (Nursing): Female Genitourinary Chief Complaint (Provider): Female Genitourinary History Per: Patient History/Exam Limitations: no limitations Onset/Duration Of Symptoms: Days (x 2) Current Symptoms Are (Timing): Still Present Quality Of Discomfort: "Pain" Associated Symptoms: Back Pain (bilateral flank pain), Urinary Symptoms (dysuria) Additional Complaint(s): 68 year old female with a history of HTN, hyperlipidemia, bronchitis, asthma and gastritis presents to the ED for evaluation of pain on urination and bilateral flank pain since yesterday. Patient reports that she finished a Tri-lidya for a sore throat and yesterday developed symptoms. Denies vomiting, diarrhea, fever and chills. PMD: Dr. Hall Abnormal Vaginal Bleeding: No Past Medical History Reviewed: Historical Data, Nursing Documentation, Vital Signs Vital Signs: Last Vital Signs Temp 98.2 F 09/10/18 18:29 Pulse 100 H 09/10/18 18:29 Resp 18 09/10/18 18:29 BP 151/138 H 09/10/18 18:29 Pulse Ox 95 09/10/18 18:29 - Medical History PMH: Anemia, Arthritis, Asthma, Bronchitis, Gastritis, HTN, Hypercholesterolemia, Hyperlipidemia Denies: HIV, Chronic Kidney Disease - Surgical History Surgical History: - Family History Family History: States: Hypertension - Immunization History Hx Tetanus Toxoid Vaccination: No Hx Influenza Vaccination: Yes Hx Pneumococcal Vaccination: Yes - Home Medications Home Medications: Ambulatory Orders Medication Instructions Recorded Albuterol HFA [Ventolin HFA 90 2 puff INH Q4H PRN 11/10/16 mcg/actuation (8 g)] Aspirin [Ecotrin] 81 mg PO DAILY 11/10/16 Atorvastatin [Lipitor] 10 mg PO DAILY tab 03/03/17 Budesonide/Formoterol Fumarate 1 inh INH DAILY 09/11/18 [Symbicort 160-4.5 Mcg Inhaler] Levocetirizine Dihydrochloride 5 mg PO DAILY 09/11/18 [Xyzal] Losartan [Cozaar] 50 mg PO DAILY 09/11/18 Montelukast [Singulair] 10 mg PO DAILY 09/11/18 - Allergies Allergies/Adverse Reactions: Allergies Allergy/AdvReac Type Severity Reaction Status Date / Time No Known Allergies Allergy Verified 03/01/17 11:06 Review of Systems ROS Statement: Except As Marked, All Systems Reviewed And Found Negative Constitutional: Negative for: Fever, Chills Cardiovascular: Negative for: Chest Pain Gastrointestinal: Negative for: Nausea, Vomiting Genitourinary Female: Positive for: Dysuria Musculoskeletal: Positive for: Back Pain (bilateral flank pain) Physical Exam - Reviewed Nursing Documentation Reviewed: Yes Vital Signs Reviewed: Yes - Physical Exam Appears: Positive for: Non-toxic, No Acute Distress Head Exam: Positive for: ATRAUMATIC, NORMAL INSPECTION, NORMOCEPHALIC Skin: Positive for: Normal Color, Warm, Dry Eye Exam: Positive for: EOMI, Normal appearance, PERRL Neck: Positive for: Normal, Painless ROM, Supple Cardiovascular/Chest: Positive for: Tachycardia (regular rhythm) Respiratory: Positive for: Normal Breath Sounds. Negative for: Respiratory Distress Gastrointestinal/Abdominal: Positive for: Tenderness (suprapubic). Negative for: Mass, Guarding, Rebound Back: Positive for: L CVA Tenderness, R CVA Tenderness Extremity: Positive for: Normal ROM (x 4). Negative for: Deformity Neurological/Psych: Positive for: Awake, Alert, Normal Tone, Oriented. Negative for: Motor/Sensory Deficits - Laboratory Results Result Diagrams: 09/10/18 20:15 09/10/18 20:15 Lab Results: Total Bilirubin 0.4 mg/dl (0.2-1.3) 09/10/18 20:15 AST 26 U/L (14-36) 09/10/18 20:15 ALT 28 U/L (9-52) 09/10/18 20:15 Alkaline Phosphatase 90 U/L (38-126) 09/10/18 20:15 Total Protein 7.4 G/DL (6.3-8.2) 09/10/18 20:15 Albumin 4.2 g/dL (3.5-5.0) 09/10/18 20:15 Globulin 3.2 gm/dL (2.2-3.9) 09/10/18 20:15 Albumin/Globulin Ratio 1.3 (1.0-2.1) 09/10/18 20:15 Urine Color Isha (YELLOW) 09/10/18 20:15 Urine Clarity Slight-cloudy (Clear) 09/10/18 20:15 Urine pH 6.0 (5.0-8.0) 09/10/18 20:15 Ur Specific [place] 1.006 (1.003-1.030) 09/10/18 20:15 Urine Protein Negative mg/dL (NEGATIVE) 09/10/18 20:15 Urine Glucose (UA) Neg mg/dL (NEGATIVE) 09/10/18 20:15 Urine Ketones Negative mg/dL (NEGATIVE) 09/10/18 20:15 Urine Blood Trace (NEGATIVE) 09/10/18 20:15 Urine Nitrate Positive (NEGATIVE) H 09/10/18 20:15 Urine Bilirubin Negative (NEGATIVE) 09/10/18 20:15 Urine Urobilinogen 1.0 mg/dL (0.2-1.0) 09/10/18 20:15 Ur Leukocyte Esterase Small [place]/uL (Negative) 09/10/18 20:15 Urine RBC (Auto) 1 /hpf (0-3) 09/10/18 20:15 Urine Microscopic WBC 26 /hpf (0-5) H 09/10/18 20:15 Ur Squamous Epith Cells 1 /hpf (0-5) 09/10/18 20:15 Urine Bacteria Rare (<OCC) 09/10/18 20:15 - ECG O2 Sat by Pulse Oximetry: 95 (RA) Pulse Ox Interpretation: Normal Medical Decision Making Medical Decision Makin:54 Impression: 68 year old female with UTI/ early pyelonephritis --EKG --CMP --Urine dip --CBC --UA 20:38 Labs reviewed and are without clinically abnormalities with the exception of elevated WBC in urine; indicative of UTI --Pyridium 200 mg PO --Rocephin 1 gm in NS 100 ml IVPB --Toradol 15 mg IVP --Abdomen US 22:06 US COMMENTS: The liver is of increased echogenicity without evidence of mass or defect measuring 16.7 cm. There is no intra or extrahepatic biliary ductal dilatation. The common bile duct measures 0.5 cm. The gallbladder shows gallstones. The gallbladder wall measures 0.3 cm. Trace pericholecystic fluid. The visualized portions of abdominal aorta and inferior vena cava present no abnormalities. The visualized portions of the pancreas are unremarkable. The spleen is of uniform echo texture and does not appear enlarged measuring 8.9 cm. The right kidney measures 11.6 x 4.4 x 3.9 cm and the left kidney measures 11.9 x 3.7 x 4.4 cm. Both kidneys are free of hydronephrosis. IMPRESSION: 1. Fatty liver. 2. Gallstones with mildly thickened gallbladder wall and pericholecystic fluid compatible with acute cholecystitis. 22:[address] Hall who will admit patient for pyelonephritis and acute cholecystitis. Cultures and IV bolus ordered. Scribe Attestation: Documented by Ángela Kirby, acting as a scribe Joslyn Farley MD Provider Scribe Attestation: All medical record entries made by the Scribe were at my direction and personally dictated by me. I have reviewed the chart and agree that the record accurately reflects my personal performance of the history, physical exam, medical decision making, and the department course for this patient. I have also personally directed, reviewed, and agree with the discharge instructions and disposition Disposition - Clinical Impression Clinical Impression: Cholecystitis, Pyelonephritis - Patient ED Disposition Is Patient to be Admitted: Yes Counseled Patient/Family Regarding: Studies Performed, Diagnosis - Disposition Disposition Time: 22:00 Condition: FAIR
[2018-09-10] MEDS ORDERED: Sodium Chloride 0.9% 1,000 ML IV STA (22:10)
[2018-09-11] MEDS: Piperacillin/Tazobact 3.375 GM in Sodium Chloride 0.9% 100 ML IV SCH ×4 (05:08→21:50)
[2018-09-11] MEDS ORDERED: Piperacillin/Tazobact 3.375 gm Inj IVPB ONE (05:09)
[2018-09-11] MEDS ORDERED: Albuterol HFA 90 mcg/actuation (8 g) INH PRN (07:52)
--- NOTE | 2018-09-11 08:24 | CARD ---
APPROVED REPORT Date of service: 09/10/2018 EKG Measurement Heart [id number] <Conclusion> Normal sinus rhythm Normal ECG
[2018-09-11] MEDS ORDERED: Bisacodyl 5mg EC Tab PO PRN (09:22)
[2018-09-11] MEDS ORDERED: Lactulose 10 gm/15 ml Syrup PO PRN (09:22)
--- NOTE | 2018-09-11 10:24 | US ---
Date of service: 09/10/2018 HISTORY: flank pain COMPARISON: Comparison is made with the previous study dated 03/01/2017 TECHNIQUE: Sonographic evaluation of the abdomen. FINDINGS: LIVER: Measures 16.7 cm. Heterogeneous and increased echogenicity of the liver parenchyma. No mass. No intrahepatic bile duct dilatation. GALLBLADDER: Gallstone is again noted. The gallbladder wall is upper normal limit measures 3 millimeter. No definite evidence of pericholecystic inflammatory changes. There is no evidence of signal graphic Summers's sign. COMMON BILE DUCT: Measures 5 mm. No stones. No dilatation. PANCREAS: Unremarkable as visualized. No mass. No ductal dilatation. RIGHT KIDNEY: Measures 11.6 x 4.4 x 3.9cm. Normal echogenicity. No calculus, mass, or hydronephrosis. LEFT KIDNEY: Measures 11.9 x 3.7 x 4.4cm. Normal echogenicity. No calculus, mass, or hydronephrosis. SPLEEN: Normal in size and contour. No mass. AORTA: No aneurysmal dilatation. IVC: Unremarkable. OTHER FINDINGS: None. IMPRESSION: Again noted is large gallstone. The gallbladder wall is upper normal limit. Questionable pericholecystic fluid. Please correlate clinically, if clinically warranted further assessment by hepatobiliary scan or MRCP may be obtained. Preliminary report contains concordant findings was submitted by [facility].
[2018-09-11] MEDS: Fluticasone-Salmeterol 250-50mcg Diskus INH SCH ×2 (11:38→22:00)
[2018-09-11] MEDS: Pantoprazole 40 mg EC Tab PO SCH (11:52)
[2018-09-11] MEDS: Sodium Chloride 0.9% 1,000 ML IV SCH ×2 (11:52→21:50)
--- NOTE | 2018-09-11 12:56 | CP.PCM.CON ---
<Kit Quiroga - Last Filed: 09/11/18 12:57> History of Present Illness - History of Present Illness History of Present Illness: General Surgery Consult for Dr. Cruz This is a 68F with a PMH of HTN, HLD, Asthma who presents with 3 days of abdominal pain. She reports, nausea no vomiting pain with urination. She reports that she often has upper abdominal pain after meals. She denies any fevers or chills at home. She reports she is moving her bowels and passing gas normally. In [facility] she had an US that was significant for a GB stone in the neck of the GB that 2X1.7X1cm. PMH: See above PSH: X2 ALL: NKDA Social: Denies vices Review of Systems - Review of Systems Review of Systems: 12 point reveiew of symptoms conducted and negative aside from pain with urination, diffuse abdominal pain and colicky pain after meals. Past Patient History - Infectious Disease Hx of Infectious Diseases: None - Past Medical History & Family History Past Medical History?: Yes - Past Social History Smoking Status: Never Smoked - CARDIAC Hx Hypercholesterolemia: Yes Hx Hypertension: Yes - PULMONARY Hx Asthma: Yes Hx Bronchitis: Yes - NEUROLOGICAL Hx Neurological Disorder: No - HEENT Hx HEENT Problems: No - RENAL Hx Chronic Kidney Disease: No - ENDOCRINE/METABOLIC Hx Endocrine Disorders: No - HEMATOLOGICAL/ONCOLOGICAL Hx Anemia: Yes Hx Human Immunodeficiency Virus (HIV): No - INTEGUMENTARY Hx Dermatological Problems: No - MUSCULOSKELETAL/RHEUMATOLOGICAL Hx Arthritis: Yes - GASTROINTESTINAL Hx Gastritis: Yes - GENITOURINARY/GYNECOLOGICAL Hx Genitourinary Disorders: No - PSYCHIATRIC Hx Substance Use: No - SURGICAL HISTORY Hx Surgeries: Yes Hx Section: Yes (x2) Hx Joint Replacement: Yes (06/07 right total knee replacement) - ANESTHESIA Hx Anesthesia: Yes (C/S) Hx Anesthesia Reactions: No Hx Malignant Hyperthermia: No Meds Allergies/Adverse Reactions: Allergies Allergy/AdvReac Type Severity Reaction Status Date / Time No Known Allergies Allergy Verified 03/01/17 11:06 - Medications Medications: Current Medications Albuterol (Ventolin Hfa 90 Mcg/Actuation (8 G)) 2 puff INH Q4H PRN PRN Reason: Shortness of Breath Aspirin (Ecotrin) 81 mg PO DAILY [facility] Last Admin: 09/11/18 11:41 Dose: 81 mg Atorvastatin Calcium (Lipitor) 10 mg PO DAILY [facility] Last Admin: 09/11/18 11:41 Dose: 10 mg Bisacodyl (Dulcolax) 5 mg PO DAILY PRN PRN Reason: Constipation Enoxaparin Sodium (Lovenox) 40 mg SC DAILY [facility]; Protocol Piperacillin Sod/Tazobactam (Sod 3.375 gm/ Sodium Chloride) 100 mls @ 100 mls/hr IV Q6 [facility]; Protocol Last Admin: 09/11/18 11:38 Dose: 100 mls/hr Sodium Chloride (Sodium Chloride 0.9%) 1,000 mls @ 100 mls/hr IV .Q10H [facility] Stop: 09/12/18 09:18 Last Admin: 09/11/18 11:52 Dose: 100 mls/hr Lactulose (Enulose) 10 gm PO DAILY PRN PRN Reason: Constipation Loratadine (Claritin) 10 mg PO DAILY [facility] Last Admin: 09/11/18 11:41 Dose: 10 mg Losartan Potassium (Cozaar) 50 mg PO DAILY [facility] Last Admin: 09/11/18 11:41 Dose: 50 mg Montelukast Sodium (Singulair) 10 mg PO DAILY [facility] Last Admin: 09/11/18 11:41 Dose: 10 mg Pantoprazole Sodium (Protonix Ec Tab) 40 mg PO DAILY [facility] Last Admin: 09/11/18 11:52 Dose: 40 mg Fluticasone/Salmeterol (Advair Diskus 250/50) 1 puff INH Q12 [facility] Last Admin: 09/11/18 11:38 Dose: 1 puff Tramadol HCl (Ultram) 50 mg PO Q6 PRN PRN Reason: Pain, moderate (4-7) Last Admin: 09/11/18 11:52 Dose: 50 mg Physical Exam - Constitutional Appears: Non-toxic, No Acute Distress - Head Exam Head Exam: ATRAUMATIC, NORMOCEPHALIC - Eye Exam Eye Exam: EOMI, Normal appearance. absent: Scleral icterus - ENT Exam ENT Exam: Mucous Membranes Moist - Neck Exam Neck exam: Positive for: Normal Inspection - Respiratory Exam Respiratory Exam: NORMAL BREATHING PATTERN - Cardiovascular Exam Cardiovascular Exam: REGULAR RHYTHM - GI/Abdominal Exam GI & Abdominal Exam: Soft, Tenderness. absent: Firm, Guarding, Hernia, Rebound, Rigid - Neurological Exam Neurological exam: Alert, Oriented x3 - Psychiatric Exam Psychiatric exam: Normal Affect, Normal Mood - Skin Skin Exam: Dry, Intact Results - Vital Signs Recent Vital Signs: Last Vital Signs Temp 98.1 F 09/11/18 11:41 Pulse 74 09/11/18 11:41 Resp 18 09/11/18 11:41 BP 119/74 09/11/18 11:41 Pulse Ox 95 09/11/18 11:41 - Labs Result Diagrams: 09/10/18 20:15 09/10/18 20:15 Labs: Laboratory Results - last 24 hr 09/10/18 09/10/18 09/10/18 20:12 20:15 20:15 WBC 9.0 RBC 4.44 Hgb 13.3 Hct 39.4 MCV 88.6 D MCH 29.8 MCHC 33.7 RDW 13.0 Plt Count 227 MPV 7.9 Neut % (Auto) 70.3 Lymph % (Auto) 18.0 L [place] % (Auto) 7.6 Eos % (Auto) 3.5 Baso % (Auto) 0.6 Neut # (Auto) 6.3 Lymph # (Auto) 1.6 [place] # (Auto) 0.7 Eos # (Auto) 0.3 Baso # (Auto) 0.1 Sodium 135 Potassium 3.6 Chloride 98 Carbon Dioxide 28 Anion Gap 13 BUN 17 Creatinine 0.7 Est GFR ( Amer) > 60 Est GFR (Non-Af Amer) > 60 Random Glucose 149 H Lactic Acid Calcium 9.2 Total Bilirubin 0.4 AST 26 ALT 28 Alkaline Phosphatase 90 Total Protein 7.4 Albumin 4.2 Globulin 3.2 Albumin/Globulin Ratio 1.3 Lipase 91 Urine Color Urine Clarity Urine pH Ur Specific [place] Urine Protein Urine Glucose (UA) Urine Ketones Urine Blood Urine Nitrate Urine Bilirubin Urine Urobilinogen Ur Leukocyte Esterase Urine RBC (Auto) Urine Microscopic WBC Ur Squamous Epith Cells Urine Bacteria 09/10/18 09/10/18 20:15 22:34 WBC RBC Hgb Hct MCV MCH MCHC RDW Plt Count MPV Neut % (Auto) Lymph % (Auto) [place] % (Auto) Eos % (Auto) Baso % (Auto) Neut # (Auto) Lymph # (Auto) [place] # (Auto) Eos # (Auto) Baso # (Auto) Sodium Potassium Chloride Carbon Dioxide Anion Gap BUN Creatinine Est GFR ( Amer) Est GFR (Non-Af Amer) Random Glucose Lactic Acid 0.8 Calcium Total Bilirubin AST ALT Alkaline Phosphatase Total Protein Albumin Globulin Albumin/Globulin Ratio Lipase Urine Color Isha Urine Clarity Slight-cloudy Urine pH 6.0 Ur Specific [place] 1.006 Urine Protein Negative Urine Glucose (UA) Neg Urine Ketones Negative Urine Blood Trace Urine Nitrate Positive H Urine Bilirubin Negative Urine Urobilinogen 1.0 Ur Leukocyte Esterase Small Urine RBC (Auto) 1 Urine Microscopic WBC 26 H Ur Squamous Epith Cells 1 Urine Bacteria Rare - Imaging and Cardiology US - abdomen Status: Image reviewed by me, Report reviewed by me Assessment & Plan - Assessment and Plan (Free Text) Assessment: 68F with UTI and cholelithiasis IV abx IVF Diet as tolerated Will need medical clearance for OR Further recs per Dr. Tye Quiroga PGY3 <Darian Corcoran - Last Filed: 09/13/18 17:01> Meds - Medications Medications: Current Medications Albuterol (Ventolin Hfa 90 Mcg/Actuation (8 G)) 2 puff INH Q4H PRN PRN Reason: Shortness of Breath Aspirin (Ecotrin) 81 mg PO DAILY [facility] Last Admin: 09/13/18 09:25 Dose: 81 mg Atorvastatin Calcium (Lipitor) 10 mg PO DAILY [facility] Last Admin: 09/13/18 09:25 Dose: 10 mg Bisacodyl (Dulcolax) 5 mg PO DAILY PRN PRN Reason: Constipation Last Admin: 09/11/18 22:35 Dose: 5 mg Docusate Sodium (Colace) 100 mg PO BID [facility] Enoxaparin Sodium (Lovenox) 40 mg SC DAILY [facility]; Protocol Last Admin: 09/12/18 09:48 Dose: 40 mg Piperacillin Sod/Tazobactam (Sod 3.375 gm/ Sodium Chloride) 100 mls @ 100 mls/hr IV Q6 [facility]; Protocol Last Admin: 09/13/18 09:28 Dose: 100 mls/hr Lactated Ringer's (Lactated Ringer's) 1,000 mls @ 100 mls/hr IV .Q10H [facility] Last Admin: 09/13/18 01:15 Dose: Not Given Lactulose (Enulose) 10 gm PO DAILY PRN PRN Reason: Constipation Last Admin: 09/13/18 06:57 Dose: 10 gm Loratadine (Claritin) 10 mg PO DAILY [facility] Last Admin: 09/13/18 09:25 Dose: 10 mg Losartan Potassium (Cozaar) 50 mg PO DAILY [facility] Last Admin: 09/13/18 09:24 Dose: 50 mg Montelukast Sodium (Singulair) 10 mg PO DAILY [facility] Last Admin: 09/13/18 09:26 Dose: 10 mg Ondansetron HCl (Zofran Inj) 4 mg IVP Q4 PRN PRN Reason: Nausea/Vomiting Last Admin: 09/11/18 22:35 Dose: 4 mg Pantoprazole Sodium (Protonix Ec Tab) 40 mg PO DAILY [facility] Last Admin: 09/13/18 09:26 Dose: 40 mg Fluticasone/Salmeterol (Advair Diskus 250/50) 1 puff INH Q12 [facility] Last Admin: 09/13/18 09:24 Dose: 1 puff Tramadol HCl (Ultram) 50 mg PO Q6 PRN PRN Reason: Pain, moderate (4-7) Last Admin: 09/11/18 18:06 Dose: 50 mg Results - Vital Signs Recent Vital Signs: Last Vital Signs Temp 97.9 F 09/13/18 16:44 Pulse 76 09/13/18 16:44 Resp 20 09/13/18 16:44 BP 102/67 09/13/18 16:44 Pulse Ox 95 09/13/18 16:44 - Labs Result Diagrams: 09/13/18 07:10 09/13/18 07:10 Labs: Laboratory Results - last 24 hr 09/13/18 09/13/18 07:10 07:10 WBC 7.1 D RBC 3.55 L Hgb 10.8 L Hct 31.6 L MCV 89.0 MCH 30.4 MCHC 34.1 RDW 13.1 Plt Count 233 MPV 7.9 Neut % (Auto) 80.6 H Lymph % (Auto) 11.0 L [place] % (Auto) 8.0 Eos % (Auto) 0.1 Baso % (Auto) 0.3 Neut # (Auto) 5.7 Lymph # (Auto) 0.8 L [place] # (Auto) 0.6 Eos # (Auto) 0.0 Baso # (Auto) 0.0 Sodium 138 Potassium 3.9 Chloride 103 Carbon Dioxide 26 Anion Gap 13 BUN 11 Creatinine 0.7 Est GFR ( Amer) > 60 Est GFR (Non-Af Amer) > 60 Random Glucose 127 H Calcium 8.5 Phosphorus 3.5 Magnesium 2.0 Total Bilirubin 0.5 AST 47 H D ALT 57 H D Alkaline Phosphatase 67 Total Protein 6.8 Albumin 3.7 Globulin 3.1 Albumin/Globulin Ratio 1.2 Assessment & Plan - Assessment and Plan (Free Text) Plan: All medical record entries made by the resident were at my direction and per sonally directed by me. I have reviewed the chart and agree that the record accurately reflects my personal performance of the history, physical exam, medical decision making
[2018-09-11 16:56] VITALS: BMI 33.8
[2018-09-11] MEDS: Enoxaparin 40 mg Syringe SC SCH (18:04)
[2018-09-12] MEDS: Piperacillin/Tazobact 3.375 GM in Sodium Chloride 0.9% 100 ML IV SCH ×4 (04:49→21:52)
[2018-09-12 06:32] LABS: BLOOD UREA NITROGEN 12 mg/dl (7-17); CALCIUM 7.9 mg/dL (8.4-10.2); GFR NON-AFRICAN AMERICAN > 60
[2018-09-12 07:03] LABS: MEAN CELL VOLUME 89.1 fl (81.0-99.0); MEAN CORPUSCULAR HGB CONC 33.6 g/dL (33.0-37.0); RBC 3.64 Mil/uL (3.80-5.20); RED CELL DISTRIBUTION WIDTH 13.4 % (11.5-14.5)
[2018-09-12 07:06] LABS: HEMOGLOBIN 10.9 g/dL (12.0-16.0); PROTHROMBIN TIME 11.6 Seconds (9.8-13.1); WHITE BLOOD COUNT 4.3 K/uL (4.8-10.8)
[2018-09-12 07:09] LABS: PARTIAL THROMBOPLASTIN TIME 33.8 Seconds (25.6-37.1)
[2018-09-12] MEDS: Fluticasone-Salmeterol 250-50mcg Diskus INH SCH ×2 (09:45→21:52)
[2018-09-12] MEDS: Enoxaparin 40 mg Syringe SC SCH (09:48)
[2018-09-12] MEDS: Pantoprazole 40 mg EC Tab PO SCH (09:48)
--- NOTE | 2018-09-12 11:12 | RAD ---
Date of service: 09/11/2018 HISTORY: r/o ileus; abd pain COMPARISON: Abdomen and pelvis CT with contrast 03/02/2017. TECHNIQUE: 1 view obtained. FINDINGS: BOWEL: Normal. No obstruction. No free air. Hyperdensity is seen within the region of the gallbladder in the right upper quadrant suggesting vicarious excretion of iodinated contrast material potentially from an outside institution as no recent intravenous contrast based exam is identified in the PACS prior exam list currently. Cholelithiasis identified in prior CT noted above and prior ultrasound 09/10/2018 as well small than the radiodensity identified at this time. BONES: Advanced multilevel degenerative facet arthropathy at the inferior lumbar spine predominantly. Degenerative changes are also seen the bilateral hip and sacroiliac joints. OTHER FINDINGS: None. IMPRESSION: Nonobstructive bowel gas pattern with a moderate amount retained material scattered at the proximal colon and a mild amount otherwise. No significant bowel distention overall. Probable vicarious excretion of iodinated contrast material within the gallbladder as discussed above though the origin of this contrast is unclear. Clinically correlate further.
--- NOTE | 2018-09-12 11:46 | CP.PCM.HP ---
History of Present Illness - History of Present Illness History of Present Illness: History of Present Illness: CC: Abdominal pain x 4 days, flank pain. HPI: 68 y/o female with a PMH of HTN, HLD, and asthma presented to the ED with abdominal pain x 4 days with associated flank pain. On workup, acute cholecystitis and pyelopnephritis was the diagnosis. The pt was started on IVF and rocephin antibiotic. Surgical consult was initiated. PMH: Anemia, Arthritis, Asthma, Bronchitis, Gastritis, HTN, Hypercholesterole lilli, Hyperlipidemia. PSH: . Allergies: NKDA. Subjective Review of Systems: reviewed and no additional remarkable complaints except diffuse RUQ abdominal pain. Objective Vital Signs Stable Appears: Non-toxic, No Acute Distress. Head Exam: NORMAL INSPECTION, normocephalic. Eye Exam: Normal appearance, PERRLA, EOMI. Respiratory Exam: NORMAL BREATHING PATTERN, breath sounds clear to auscultation. Cardiovascular Exam: +S1, +S2; RRR> GI & Abdominal Exam: Soft, non-distended, mildly tender abdomen. Flank pain noted on palpation. Neurological Exam: Alert, Awake, Oriented x3. Psychiatric exam: Normal Affect, Normal Mood Skin Exam: Normal Color, Warm, Dry. Assessment/Impression/Plan: 1.) Cholecystitis -Abdominal Ultrasound revealed large gall stone. -surgical team on consult. -IVF and ultram for pain. -may need surgery. -continue current tx. Present on Admission - Present on Admission Any Indicators Present on Admission: No Past Patient History - Infectious Disease Hx of Infectious Diseases: None - Past Medical History & Family History Past Medical History?: Yes - Past Social History Smoking Status: Never Smoked - CARDIAC Hx Hypercholesterolemia: Yes Hx Hypertension: Yes - PULMONARY Hx Asthma: Yes Hx Bronchitis: Yes - NEUROLOGICAL Hx Neurological Disorder: No - HEENT Hx HEENT Problems: No - RENAL Hx Chronic Kidney Disease: No - ENDOCRINE/METABOLIC Hx Endocrine Disorders: No - HEMATOLOGICAL/ONCOLOGICAL Hx Anemia: Yes Hx Human Immunodeficiency Virus (HIV): No - INTEGUMENTARY Hx Dermatological Problems: No - MUSCULOSKELETAL/RHEUMATOLOGICAL Hx Arthritis: Yes - GASTROINTESTINAL Hx Gastritis: Yes - GENITOURINARY/GYNECOLOGICAL Hx Genitourinary Disorders: No - PSYCHIATRIC Hx Substance Use: No - SURGICAL HISTORY Hx Surgeries: Yes Hx Section: Yes (x2) Hx Joint Replacement: Yes (12/21 right total knee replacement) - ANESTHESIA Hx Anesthesia: Yes (C/S) Hx Anesthesia Reactions: No Hx Malignant Hyperthermia: No Meds Allergies/Adverse Reactions: Allergies Allergy/AdvReac Type Severity Reaction Status Date / Time No Known Allergies Allergy Verified 03/01/17 11:06 Results - Vital Signs Recent Vital Signs: Last Vital Signs Temp 97.8 F 09/12/18 08:50 Pulse 77 09/12/18 09:46 Resp 20 09/12/18 08:50 BP 117/74 09/12/18 09:46 Pulse Ox 95 09/12/18 08:50 - Labs Result Diagrams: 09/12/18 05:57 09/12/18 05:57 Labs: Laboratory Results - last 24 hr 09/12/18 09/12/18 09/12/18 05:57 05:57 05:57 WBC 4.3 L D RBC 3.64 L Hgb 10.9 L D Hct 32.5 L MCV 89.1 MCH 30.0 MCHC 33.6 RDW 13.4 Plt Count 203 PT 11.6 INR 1.0 APTT 33.8 Sodium 139 Potassium 3.9 Chloride 105 Carbon Dioxide 27 Anion Gap 11 BUN 12 Creatinine 0.6 L Est GFR ( Amer) > 60 Est GFR (Non-Af Amer) > 60 Random Glucose 99 Calcium 7.9 L Blood Type Antibody Screen BBK History Checked 09/12/18 09:20 WBC RBC Hgb Hct MCV MCH MCHC RDW Plt Count PT INR APTT Sodium Potassium Chloride Carbon Dioxide Anion Gap BUN Creatinine Est GFR ( Amer) Est GFR (Non-Af Amer) Random Glucose Calcium Blood Type O POSITIVE Antibody Screen Negative BBK History Checked Patient has bt Assessment & Plan (1) Cholecystitis Status: Acute (2) Pyelonephritis Status: Acute
--- NOTE | 2018-09-12 12:03 | CP.PCM.PN ---
Subjective - Date & Time of Evaluation Date of Evaluation: 09/12/18 Time of Evaluation: 10:30 - Subjective Subjective: patient seen and examined at bedside. Interim events noted complaints of abdominal pain, upper and lower abdomen denies cp/sob/fever/chills. available diagnostic data reviewed Review of Systems All systems: reviewed and no additional remarkable complaints except mentioned above Objective Vital Signs Stable - Constitutional Appears: Non-toxic, No Acute Distress Head Exam: NORMAL INSPECTION Eye Exam: Normal appearance Respiratory Exam: NORMAL BREATHING PATTERN Cardiovascular Exam: +S1, +S2 GI & Abdominal Exam: Soft though tenderness of RUQ and suprapubic Neurological Exam: Alert, Awake Psychiatric exam: Normal Affect, Normal Mood Skin Exam: Normal Color, Warm Assessment and Plan monitor vitals monitor labs Cont meds Cont tx consultants appreciated input patient is medically optimized for procedure rest of plan as ordered Objective - Vital Signs/Intake and Output Vital Signs (last 24 hours): Temp Pulse Resp BP Pulse Ox 97.8 F 77 20 117/74 95 09/12/18 08:50 09/12/18 09:46 09/12/18 08:50 09/12/18 09:46 09/12/18 08:50 - Medications Medications: Current Medications Albuterol (Ventolin Hfa 90 Mcg/Actuation (8 G)) 2 puff INH Q4H PRN PRN Reason: Shortness of Breath Aspirin (Ecotrin) 81 mg PO DAILY [facility] Last Admin: 09/12/18 09:47 Dose: 81 mg Atorvastatin Calcium (Lipitor) 10 mg PO DAILY [facility] Last Admin: 09/12/18 09:47 Dose: 10 mg Bisacodyl (Dulcolax) 5 mg PO DAILY PRN PRN Reason: Constipation Last Admin: 09/11/18 22:35 Dose: 5 mg Enoxaparin Sodium (Lovenox) 40 mg SC DAILY [facility]; Protocol Last Admin: 09/12/18 09:48 Dose: 40 mg Piperacillin Sod/Tazobactam (Sod 3.375 gm/ Sodium Chloride) 100 mls @ 100 mls/hr IV Q6 [facility]; Protocol Last Admin: 09/12/18 09:49 Dose: 100 mls/hr Lactulose (Enulose) 10 gm PO DAILY PRN PRN Reason: Constipation Loratadine (Claritin) 10 mg PO DAILY [facility] Last Admin: 09/12/18 09:46 Dose: 10 mg Losartan Potassium (Cozaar) 50 mg PO DAILY [facility] Last Admin: 09/12/18 09:46 Dose: 50 mg Montelukast Sodium (Singulair) 10 mg PO DAILY [facility] Last Admin: 09/12/18 09:48 Dose: 10 mg Ondansetron HCl (Zofran Inj) 4 mg IVP Q4 PRN PRN Reason: Nausea/Vomiting Last Admin: 09/11/18 22:35 Dose: 4 mg Pantoprazole Sodium (Protonix Ec Tab) 40 mg PO DAILY [facility] Last Admin: 09/12/18 09:48 Dose: 40 mg Fluticasone/Salmeterol (Advair Diskus 250/50) 1 puff INH Q12 [facility] Last Admin: 09/12/18 09:45 Dose: 1 puff Tramadol HCl (Ultram) 50 mg PO Q6 PRN PRN Reason: Pain, moderate (4-7) Last Admin: 09/11/18 18:06 Dose: 50 mg - Labs Labs: 09/12/18 05:57 09/12/18 05:57 PT 11.6 Seconds (9.8-13.1) 09/12/18 05:57 INR 1.0 09/12/18 05:57 APTT 33.8 Seconds (25.6-37.1) 09/12/18 05:57
--- NOTE | 2018-09-12 12:11 | RAD ---
Date of service: 09/12/2018 HISTORY: Admission, pre-op COMPARISON: Left ribs with chest 03/01/2017. TECHNIQUE: 1 view obtained. FINDINGS: LUNGS: No active pulmonary disease. PLEURA: No significant pleural effusion identified, no pneumothorax apparent. CARDIOVASCULAR: Calcific atherosclerotic changes are seen related to the thoracic aorta. Normal cardiac size. No pulmonary vascular congestion. OSSEOUS STRUCTURES: No significant abnormalities. VISUALIZED UPPER ABDOMEN: Mild interval mammillation right hemidiaphragm. OTHER FINDINGS: None. IMPRESSION: No interval acute cardiopulmonary disease appreciated.
[2018-09-12] MEDS ORDERED: Lidocaine 1% Inj (20ml) ONE (12:19)
[2018-09-12] MEDS ORDERED: Succinylcholine 200 mg/10 ml Inj IV ONE (12:20)
[2018-09-12] MEDS ORDERED: Lidocaine 4% (Laryng-O-Jet) Kit MM ONE (12:21)
[2018-09-12] MEDS ORDERED: Propofol 10 mg/ml Inj (20 ML) ONE (12:21)
[2018-09-12] MEDS ORDERED: Rocuronium 10 mg/ml (5 ml) ONE (12:21)
[2018-09-12] MEDS ORDERED: Bupivacaine 0.5% Inj(30mL) ONE (12:49)
[2018-09-12] MEDS ORDERED: Midazolam 2 MG/2 ML VIAL ONE (13:02)
[2018-09-12] MEDS ORDERED: ePHEDrine 50 mg/ml Inj ONE (13:02)
[2018-09-12] MEDS ORDERED: Lactated Ringer's 1,000 ML IV ONE (13:20)
[2018-09-12] MEDS ORDERED: Dexamethasone 4 mg/1 ml ONE (14:42)
[2018-09-12] MEDS ORDERED: Neostigmine 1:1000 (1 mg/ml) Inj ONE (14:49)
[2018-09-12] MEDS ORDERED: HYDROmorphone 0.5 mg/0.5 ml ISec IVP PRN (15:03)
[2018-09-12] MEDS ORDERED: Dexamethasone 4 mg/1 ml IVP PRN (15:03)
[2018-09-12] MEDS ORDERED: Lactated Ringer's 1,000 ML IV SCH (15:15)
--- NOTE | 2018-09-12 15:25 | PCM.SURG1 ---
Surgeon's Initial Post Op Note - Surgeon's Notes Surgeon: Dr. Betancourt Boiler Coverer Helper: Dakota PGY2, Junaid PGY3 Type of Anesthesia: General Endo, Local Anesthesia Administered By: Dr. Huddleston Pre-Operative Diagnosis: Biliary colic Operative Findings: Cholelithiasis, acute cholecystitis Post-Operative Diagnosis: acute cholecystitis Operation Performed: Laparoscopic Cholecystectomy Specimen/Specimens Removed: Gallbladder with stone Estimated Blood Loss: EBL {In ML}: 15 Blood Products Given: N/A Drains Used: No Drains Post-Op Condition: Good Date of Surgery/Procedure: 09/12/18 Time of Surgery/Procedure: 15:25
--- NOTE | 2018-09-12 15:25 | PCM.OP ---
Operative Report - Operative Report Date of Surgery/Procedure: 09/12/18 Time of Surgery/Procedure: 15:25 Surgeon: Dr. Betancourt Wool Shearing Supervisor: Dakota PGY2, Junaid PGY3 Anesthesia/Sedation: General Endo Dr. Huddleston Pre-Operative Diagnosis: Biliary Colic Post-Operative Diagnosis: Acute cholecystitis Indication for Surgery: biliary colic Operative Findings: Acute cholecystitis Procedure/Operation Description: 68 F who presents for Laparoscopic Cholecystectomy. Consent was obtained before the procedure. Risks/benefits were discussed at length with the patient. The patient verbalized understanding and agreement. Patient was taken to the operating room and placed in the supine position. SCDs Were applied to bilateral lower extremities. General endotracheal anesthesia was administered. The patients abdomen was prepped and draped in the usual sterile fashion. Timeout was performed. #11 blade was used to make infraumbilical incision. Verses needle puncture was performed at this incision. The abdomen was insufflated to the optimal 15 mmhg with CO2. 12 mm laparoscopic trocar was inserted through the infraumbilical incision. Under direct visualization, a second 5 mm was placed subxiphoid then one additional 5 mm port was placed beneath the right costal margin The gallbladder was visualized. It appeared inflamed with mild distention. There was presence of acute inflammation. The gallbladder fundus was grasp in elevated towards the right shoulder. The infundibulum was cleared of overlying fatty tissue invitations then grasp and retracted laterally. The cystic duct was identified and dissected bluntly. The cystic duct was cleared towards the junction of the CBD as well as near its insertion to the gallbladder. The cystic artery was then identify and bluntly dissected. The critical view of safety was achieved. Three Clips were placed on the cystic duct and then it was divided with Endo Tyree. The cystic artery was also clipped in the same fashion then was divided as well. A posterior branch of the cystic artery was then encountered which was always clipped three times before being divided. The gallbladder was dissected off the liver bed using electrocautery. The liver bed was inspected for hemostasis before the dissection was completed. The gallbladder was completely removed from the liver bed and placed in a specimen retrieval bag before being removed from the infraumbilical port site. The right upper quadrant was irrigated and section. There was no evid ence of bile or bleeding. The pneumoperitoneum was released and all the trocars were removed. The umbilical port site was then closed at the fascial layer with a figure of eight using 0 Vicryl on UR6 needle. All incisions were closed with subcuticular 4-0 Monocryl sutures. Dermabond was applied as dressing. All nursing counts were correct and confirmed. Patient tolerated the procedure well with no pain complications. The patient was transferred to the PACU for recovery. Estimated blood loss was 15 mL. Estimated Blood Loss: 15 mL Complications: None Discharge & Condition: Good, patient sent to PACU before back to med/surg floor
[2018-09-13] MEDS: Piperacillin/Tazobact 3.375 GM in Sodium Chloride 0.9% 100 ML IV SCH ×4 (04:12→22:37)
[2018-09-13 07:37] LABS: BASO % 0.3 % (0.0-2.0); EOS % 0.1 % (0.0-4.0); HEMOGLOBIN 10.8 g/dL (12.0-16.0); LYMPH # 0.8 K/uL (1.0-4.3); MEAN CORPUSCULAR HEMOGLOBIN 30.4 pg (27.0-31.0); MEAN CORPUSCULAR HGB CONC 34.1 g/dL (33.0-37.0); MEAN PLATELET VOLUME 7.9 fl (7.2-11.7); MONO # 0.6 K/uL (0.0-0.8); NEUT # 5.7 K/uL (1.8-7.0); NEUT % 80.6 % (50.0-75.0); NRBC % 0.2 % (0.0-0.0); RBC 3.55 Mil/uL (3.80-5.20); RED CELL DISTRIBUTION WIDTH 13.1 % (11.5-14.5); WHITE BLOOD COUNT 7.1 K/uL (4.8-10.8)
[2018-09-13 07:48] LABS: ALB/GLOB RATIO 1.2 (1.0-2.1); ALBUMIN 3.7 g/dL (3.5-5.0); ALT/SGPT 57 U/L (9-52); AST/SGOT 47 U/L (14-36); BLOOD UREA NITROGEN 11 mg/dl (7-17); CALCIUM 8.5 mg/dL (8.4-10.2); GFR NON-AFRICAN AMERICAN > 60
--- NOTE | 2018-09-13 09:16 | CP.PCM.PN ---
<Kathya Zhongcecilio - Last Filed: 09/13/18 09:14> Subjective - Date & Time of Evaluation Date of Evaluation: 09/13/18 Time of Evaluation: 09:14 - Subjective Subjective: General Surgery Consult for Dr. Betancourt, 68 y/o female patient seen and evaluated at bedside POD1 laparoscopic cholecystectomy. Patient states pain is much better, and denies any acute overnight events. Patient denies nausea or vomiting. Patient states she is p assiong flatus, but denies bowel movement. Patient encouraged to continue ambulation Objective - Vital Signs/Intake and Output Vital Signs (last 24 hours): Temp Pulse Resp BP Pulse Ox 98.2 F 82 18 102/65 95 09/13/18 09:00 09/13/18 09:00 09/13/18 09:00 09/13/18 09:00 09/13/18 09:00 - Medications Medications: Current Medications Albuterol (Ventolin Hfa 90 Mcg/Actuation (8 G)) 2 puff INH Q4H PRN PRN Reason: Shortness of Breath Aspirin (Ecotrin) 81 mg PO DAILY [facility] Last Admin: 09/12/18 09:47 Dose: 81 mg Atorvastatin Calcium (Lipitor) 10 mg PO DAILY [facility] Last Admin: 09/12/18 09:47 Dose: 10 mg Bisacodyl (Dulcolax) 5 mg PO DAILY PRN PRN Reason: Constipation Last Admin: 09/11/18 22:35 Dose: 5 mg Enoxaparin Sodium (Lovenox) 40 mg SC DAILY [facility]; Protocol Last Admin: 09/12/18 09:48 Dose: 40 mg Piperacillin Sod/Tazobactam (Sod 3.375 gm/ Sodium Chloride) 100 mls @ 100 mls/hr IV Q6 [facility]; Protocol Last Admin: 09/13/18 04:12 Dose: 100 mls/hr Lactated Ringer's (Lactated Ringer's) 1,000 mls @ 100 mls/hr IV .Q10H [facility] Last Admin: 09/13/18 01:15 Dose: Not Given Lactulose (Enulose) 10 gm PO DAILY PRN PRN Reason: Constipation Last Admin: 09/13/18 06:57 Dose: 10 gm Loratadine (Claritin) 10 mg PO DAILY [facility] Last Admin: 09/12/18 09:46 Dose: 10 mg Losartan Potassium (Cozaar) 50 mg PO DAILY [facility] Last Admin: 09/12/18 09:46 Dose: 50 mg Montelukast Sodium (Singulair) 10 mg PO DAILY [facility] Last Admin: 09/12/18 09:48 Dose: 10 mg Ondansetron HCl (Zofran Inj) 4 mg IVP Q4 PRN PRN Reason: Nausea/Vomiting Last Admin: 09/11/18 22:35 Dose: 4 mg Pantoprazole Sodium (Protonix Ec Tab) 40 mg PO DAILY [facility] Last Admin: 09/12/18 09:48 Dose: 40 mg Fluticasone/Salmeterol (Advair Diskus 250/50) 1 puff INH Q12 [facility] Last Admin: 09/12/18 21:52 Dose: 1 puff Tramadol HCl (Ultram) 50 mg PO Q6 PRN PRN Reason: Pain, moderate (4-7) Last Admin: 09/11/18 18:06 Dose: 50 mg - Labs Labs: 09/13/18 07:10 09/13/18 07:10 PT 11.6 Seconds (9.8-13.1) 09/12/18 05:57 INR 1.0 09/12/18 05:57 APTT 33.8 Seconds (25.6-37.1) 09/12/18 05:57 - Constitutional Appears: Well, Non-toxic, No Acute Distress - Head Exam Head Exam: ATRAUMATIC, NORMOCEPHALIC - Eye Exam Eye Exam: Normal appearance - ENT Exam ENT Exam: Mucous Membranes Moist - Respiratory Exam Respiratory Exam: Clear to Ausculation Bilateral, NORMAL BREATHING PATTERN. abs ent: Accessory Muscle Use, Respiratory Distress - Cardiovascular Exam Cardiovascular Exam: REGULAR RHYTHM, +S1, +S2 - GI/Abdominal Exam GI & Abdominal Exam: Soft, Tenderness, Normal Bowel Sounds. absent: Distended, Firm, Guarding, Rigid Additional comments: incisions with clean, dry dressing noted. Tenderness on palpation to the incision sites - Neurological Exam Neurological Exam: Alert, Awake, Oriented x3 - Psychiatric Exam Psychiatric exam: Normal Affect, Normal Mood - Skin Skin Exam: Normal Color Assessment and Plan - Assessment and Plan (Free Text) Assessment: 68 y/o female patient with UTI and cholelithiasis s/p POD1 laparoscopic cholecystectomy Plan: - Regular Diet - No heavy lifting - Stable for D/C from Surgery standpoint - Follow-Up with Dr. Betancourt in 1-2 weeks - Encourage ambulation case discussed with Dr. Smith PGY1 <Darian Corcoran - Last Filed: 09/13/18 16:59> Objective - Vital Signs/Intake and Output Vital Signs (last 24 hours): Temp Pulse Resp BP Pulse Ox 97.9 F 76 20 102/67 95 09/13/18 16:44 09/13/18 16:44 09/13/18 16:44 09/13/18 16:44 09/13/18 16:44 - Medications Medications: Current Medications Albuterol (Ventolin Hfa 90 Mcg/Actuation (8 G)) 2 puff INH Q4H PRN PRN Reason: Shortness of Breath Aspirin (Ecotrin) 81 mg PO DAILY [facility] Last Admin: 09/13/18 09:25 Dose: 81 mg Atorvastatin Calcium (Lipitor) 10 mg PO DAILY [facility] Last Admin: 09/13/18 09:25 Dose: 10 mg Bisacodyl (Dulcolax) 5 mg PO DAILY PRN PRN Reason: Constipation Last Admin: 09/11/18 22:35 Dose: 5 mg Docusate Sodium (Colace) 100 mg PO BID [facility] Enoxaparin Sodium (Lovenox) 40 mg SC DAILY [facility]; Protocol Last Admin: 09/12/18 09:48 Dose: 40 mg Piperacillin Sod/Tazobactam (Sod 3.375 gm/ Sodium Chloride) 100 mls @ 100 mls/hr IV Q6 [facility]; Protocol Last Admin: 09/13/18 09:28 Dose: 100 mls/hr Lactated Ringer's (Lactated Ringer's) 1,000 mls @ 100 mls/hr IV .Q10H [facility] Last Admin: 09/13/18 01:15 Dose: Not Given Lactulose (Enulose) 10 gm PO DAILY PRN PRN Reason: Constipation Last Admin: 09/13/18 06:57 Dose: 10 gm Loratadine (Claritin) 10 mg PO DAILY [facility] Last Admin: 09/13/18 09:25 Dose: 10 mg Losartan Potassium (Cozaar) 50 mg PO DAILY [facility] Last Admin: 09/13/18 09:24 Dose: 50 mg Montelukast Sodium (Singulair) 10 mg PO DAILY [facility] Last Admin: 09/13/18 09:26 Dose: 10 mg Ondansetron HCl (Zofran Inj) 4 mg IVP Q4 PRN PRN Reason: Nausea/Vomiting Last Admin: 09/11/18 22:35 Dose: 4 mg Pantoprazole Sodium (Protonix Ec Tab) 40 mg PO DAILY [facility] Last Admin: 09/13/18 09:26 Dose: 40 mg Fluticasone/Salmeterol (Advair Diskus 250/50) 1 puff INH Q12 [facility] Last Admin: 09/13/18 09:24 Dose: 1 puff Tramadol HCl (Ultram) 50 mg PO Q6 PRN PRN Reason: Pain, moderate (4-7) Last Admin: 09/11/18 18:06 Dose: 50 mg - Labs Labs: 09/13/18 07:10 09/13/18 07:10 PT 11.6 Seconds (9.8-13.1) 09/12/18 05:57 INR 1.0 09/12/18 05:57 APTT 33.8 Seconds (25.6-37.1) 09/12/18 05:57 Assessment and Plan - Assessment and Plan (Free Text) Assessment: All medical record entries made by the resident were at my direction and personally directed by me. I have reviewed the chart and agree that the record accurately reflects my personal performance of the history, physical exam, medical decision making.
[2018-09-13] MEDS: Fluticasone-Salmeterol 250-50mcg Diskus INH SCH ×2 (09:24→20:42)
[2018-09-13] MEDS: Pantoprazole 40 mg EC Tab PO SCH (09:26)
[2018-09-13 23:56] VITALS: O2SAT 94
[2018-09-14] MEDS: Piperacillin/Tazobact 3.375 GM in Sodium Chloride 0.9% 100 ML IV SCH ×2 (04:47→09:28)
[2018-09-14 07:58] VITALS: BP 117/65; PULSE 80; RESP 19; TEMP 97.9
[2018-09-14] MEDS: Fluticasone-Salmeterol 250-50mcg Diskus INH SCH (09:25)
[2018-09-14] MEDS: Enoxaparin 40 mg Syringe SC SCH (09:26)
[2018-09-14] MEDS: Pantoprazole 40 mg EC Tab PO SCH (09:27)
--- NOTE | 2018-09-14 13:28 | CP.PCM.PN ---
Subjective - Date & Time of Evaluation Date of Evaluation: 09/13/18 Time of Evaluation: 11:20 - Subjective Subjective: Patient is doing well postop. Has not had any bowel movement for 5 days Has no fever. Objective - Vital Signs/Intake and Output Vital Signs (last 24 hours): Temp Pulse Resp BP Pulse Ox 97.9 F 80 19 117/65 94 L 09/14/18 07:58 09/14/18 09:25 09/14/18 07:58 09/14/18 09:25 09/14/18 07:58 - Medications Medications: Current Medications Albuterol (Ventolin Hfa 90 Mcg/Actuation (8 G)) 2 puff INH Q4H PRN PRN Reason: Shortness of Breath Last Admin: 09/14/18 09:27 Dose: 2 inh Aspirin (Ecotrin) 81 mg PO DAILY [facility] Last Admin: 09/14/18 09:26 Dose: 81 mg Atorvastatin Calcium (Lipitor) 10 mg PO DAILY [facility] Last Admin: 09/14/18 09:26 Dose: 10 mg Bisacodyl (Dulcolax) 5 mg PO DAILY PRN PRN Reason: Constipation Last Admin: 09/11/18 22:35 Dose: 5 mg Docusate Sodium (Colace) 100 mg PO BID [facility] Last Admin: 09/14/18 09:25 Dose: 100 mg Enoxaparin Sodium (Lovenox) 40 mg SC DAILY [facility]; Protocol Last Admin: 09/14/18 09:26 Dose: 40 mg Piperacillin Sod/Tazobactam (Sod 3.375 gm/ Sodium Chloride) 100 mls @ 100 mls/hr IV Q6 [facility]; Protocol Last Admin: 09/14/18 09:28 Dose: 100 mls/hr Lactated Ringer's (Lactated Ringer's) 1,000 mls @ 100 mls/hr IV .Q10H [facility] Last Admin: 09/13/18 01:15 Dose: Not Given Lactulose (Enulose) 10 gm PO DAILY PRN PRN Reason: Constipation Last Admin: 09/13/18 06:57 Dose: 10 gm Loratadine (Claritin) 10 mg PO DAILY [facility] Last Admin: 09/14/18 09:25 Dose: 10 mg Losartan Potassium (Cozaar) 50 mg PO DAILY [facility] Last Admin: 09/14/18 09:25 Dose: 50 mg Montelukast Sodium (Singulair) 10 mg PO DAILY [facility] Last Admin: 09/14/18 09:27 Dose: 10 mg Ondansetron HCl (Zofran Inj) 4 mg IVP Q4 PRN PRN Reason: Nausea/Vomiting Last Admin: 09/11/18 22:35 Dose: 4 mg Pantoprazole Sodium (Protonix Ec Tab) 40 mg PO DAILY [facility] Last Admin: 09/14/18 09:27 Dose: 40 mg Fluticasone/Salmeterol (Advair Diskus 250/50) 1 puff INH Q12 [facility] Last Admin: 09/14/18 09:25 Dose: 1 puff Tramadol HCl (Ultram) 50 mg PO Q6 PRN PRN Reason: Pain, moderate (4-7) Last Admin: 09/13/18 22:46 Dose: 50 mg - Labs Labs: 09/13/18 07:10 09/13/18 07:10 PT 11.6 Seconds (9.8-13.1) 09/12/18 05:57 INR 1.0 09/12/18 05:57 APTT 33.8 Seconds (25.6-37.1) 09/12/18 05:57 - Head Exam Head Exam: NORMAL INSPECTION - Eye Exam Eye Exam: Normal appearance - ENT Exam ENT Exam: Mucous Membranes Moist - Respiratory Exam Respiratory Exam: Clear to Ausculation Bilateral - Cardiovascular Exam Cardiovascular Exam: REGULAR RHYTHM - GI/Abdominal Exam GI & Abdominal Exam: Normal Bowel Sounds Assessment and Plan (1) Constipation Status: Acute (2) Cholecystitis Status: Acute (3) Gastritis Status: Acute - Assessment and Plan (Free Text) Plan: Cont meds Con ttx Cont o meds lactulose
--- NOTE | 2018-09-14 13:32 | CP.PCM.DIS ---
Provider - Provider Date of Admission: 09/10/18 22:07 Attending physician: Db Hall MD Consults: 09/11/18 09:19 Surgical [General Surgery Consult] Routine Comment: Consulting Provider: Peter Gamble Consulting Physician: Peter Gamble Reason for Consult: acute cholecystitis Time Spent in preparation of Discharge (in minutes): 30 Diagnosis - Discharge Diagnosis (1) Constipation Status: Acute (2) Cholecystitis Status: Acute (3) Gastritis Status: Acute Hospital Course - Lab Results Lab Results: Micro Results 09/10/18 22:50 Blood-Venous Blood Culture - Preliminary NO GROWTH AFTER 3 DAYS 09/10/18 22:34 Blood Blood Culture - Preliminary NO GROWTH AFTER 3 DAYS 09/10/18 22:34 Urine Random Urine Culture - Final Gram Negative Terence Most Recent Lab Values WBC 7.1 K/uL (4.8-10.8) D 09/13/18 07:10 RBC 3.55 Mil/uL (3.80-5.20) L 09/13/18 07:10 Hgb 10.8 g/dL (12.0-16.0) L 09/13/18 07:10 Hct 31.6 % (34.0-47.0) L 09/13/18 07:10 MCV 89.0 fl (81.0-99.0) 09/13/18 07:10 MCH 30.4 pg (27.0-31.0) 09/13/18 07:10 MCHC 34.1 g/dL (33.0-37.0) 09/13/18 07:10 RDW 13.1 % (11.5-14.5) 09/13/18 07:10 Plt Count 233 K/uL (130-400) 09/13/18 07:10 MPV 7.9 fl (7.2-11.7) 09/13/18 07:10 Neut % (Auto) 80.6 % (50.0-75.0) H 09/13/18 07:10 Lymph % (Auto) 11.0 % (20.0-40.0) L 09/13/18 07:10 [place] % (Auto) 8.0 % (0.0-10.0) 09/13/18 07:10 Eos % (Auto) 0.1 % (0.0-4.0) 09/13/18 07:10 Baso % (Auto) 0.3 % (0.0-2.0) 09/13/18 07:10 Neut # (Auto) 5.7 K/uL (1.8-7.0) 09/13/18 07:10 Lymph # (Auto) 0.8 K/uL (1.0-4.3) L 09/13/18 07:10 [place]pherson # (Auto) 0.6 K/uL (0.0-0.8) 09/13/18 07:10 Eos # (Auto) 0.0 K/uL (0.0-0.7) 09/13/18 07:10 Baso # (Auto) 0.0 K/uL (0.0-0.2) 09/13/18 07:10 PT 11.6 Seconds (9.8-13.1) 09/12/18 05:57 INR 1.0 09/12/18 05:57 APTT 33.8 Seconds (25.6-37.1) 09/12/18 05:57 Sodium 138 mmol/l (132-148) 09/13/18 07:10 Potassium 3.9 MMOL/L (3.6-5.0) 09/13/18 07:10 Chloride 103 mmol/L (98-107) 09/13/18 07:10 Carbon Dioxide 26 mmol/L (22-30) 09/13/18 07:10 Anion Gap 13 (10-20) 09/13/18 07:10 BUN 11 mg/dl (7-17) 09/13/18 07:10 Creatinine 0.7 mg/dl (0.7-1.2) 09/13/18 07:10 Est GFR ( Amer) > 60 09/13/18 07:10 Est GFR (Non-Af Amer) > 60 09/13/18 07:10 Random Glucose 127 mg/dL (65-105) H 09/13/18 07:10 Lactic Acid 0.8 mmol/L (0.7-2.1) 09/10/18 22:34 Calcium 8.5 mg/dL (8.4-10.2) 09/13/18 07:10 Phosphorus 3.5 mg/dl (2.5-4.5) 09/13/18 07:10 Magnesium 2.0 MG/DL (1.6-2.3) 09/13/18 07:10 Total Bilirubin 0.5 mg/dl (0.2-1.3) 09/13/18 07:10 AST 47 U/L (14-36) H D 09/13/18 07:10 ALT 57 U/L (9-52) H D 09/13/18 07:10 Alkaline Phosphatase 67 U/L (38-126) 09/13/18 07:10 Total Protein 6.8 G/DL (6.3-8.2) 09/13/18 07:10 Albumin 3.7 g/dL (3.5-5.0) 09/13/18 07:10 Globulin 3.1 gm/dL (2.2-3.9) 09/13/18 07:10 Albumin/Globulin Ratio 1.2 (1.0-2.1) 09/13/18 07:10 Lipase 91 U/L (23-300) 09/10/18 20:12 Urine Color Isha (YELLOW) 09/10/18 20:15 Urine Clarity Slight-cloudy (Clear) 09/10/18 20:15 Urine pH 6.0 (5.0-8.0) 09/10/18 20:15 Ur Specific [place] 1.006 (1.003-1.030) 09/10/18 20:15 Urine Protein Negative mg/dL (NEGATIVE) 09/10/18 20:15 Urine Glucose (UA) Neg mg/dL (NEGATIVE) 09/10/18 20:15 Urine Ketones Negative mg/dL (NEGATIVE) 09/10/18 20:15 Urine Blood Trace (NEGATIVE) 09/10/18 20:15 Urine Nitrate Positive (NEGATIVE) H 09/10/18 20:15 Urine Bilirubin Negative (NEGATIVE) 09/10/18 20:15 Urine Urobilinogen 1.0 mg/dL (0.2-1.0) 09/10/18 20:15 Ur Leukocyte Esterase Small [place]/uL (Negative) 09/10/18 20:15 Urine RBC (Auto) 1 /hpf (0-3) 09/10/18 20:15 Urine Microscopic WBC 26 /hpf (0-5) H 09/10/18 20:15 Ur Squamous Epith Cells 1 /hpf (0-5) 09/10/18 20:15 Urine Bacteria Rare (<OCC) 09/10/18 20:15 Blood Type O POSITIVE 09/12/18 09:20 Antibody Screen Negative 09/12/18 09:20 BBK History Checked Patient has bt 09/12/18 09:20 - Hospital Course Hospital Course: This is a 68 y/o female admitted for abdominal pain. She was seen in the office and was noted to have tenderness gino in the lower abd area. She was noted to have cholecystitis and cholecystectomy was performed. She tolerated well and was able to resume po meds the day after. She remained stable and was discharged in stable condition. Discharge Exam - Head Exam Head Exam: NORMAL INSPECTION - Eye Exam Eye Exam: Normal appearance - Respiratory Exam Respiratory Exam: NORMAL BREATHING PATTERN - Cardiovascular Exam Cardiovascular Exam: REGULAR RHYTHM - GI/Abdominal Exam GI & Abdominal Exam: Normal Bowel Sounds - Neurological Exam Neurological exam: CN II-XII Intact, Oriented x3 - Psychiatric Exam Psychiatric exam: Normal Mood Discharge Plan - Follow Up Plan Condition: FAIR Disposition: HOME/ ROUTINE Instructions: Urinary Tract Infection, Adult (DC), Cholecystitis (DC) Additional Instructions: follow up with primary MD 1 week Referrals: Db Hall MD [Family Provider] - Peter Gamble MD [Staff Provider] -
== END 2018-09-14 14:22 | disposition home or self-care (01) | DRG 418 ==
LOC: H.ER 18:08 → H.ERHOLD 22:07 → H.TEL 09-11 06:15 → H.MEDSURG1 09-11 21:14
PROVIDERS: ADMIT Family Medicine; ATTEND Family Medicine
PROC: 0FT44ZZ Resection of Gallbladder, Percutaneous Endoscopic Approach (ICD-10-PCS; principal; 2018-09-12 12:00)
DX: K80.00 Calculus of gallbladder with acute cholecystitis without obstruction (principal); N12 Tubulo-interstitial nephritis, not specified as acute or chronic; K76.0 Fatty (change of) liver, not elsewhere classified; Z79.82 Long term (current) use of aspirin; Z96.651 Presence of right artificial knee joint; E78.00 Pure hypercholesterolemia, unspecified; K29.70 Gastritis, unspecified, without bleeding; K59.00 Constipation, unspecified; E78.5 Hyperlipidemia, unspecified; I10 Essential (primary) hypertension; J45.909 Unspecified asthma, uncomplicated; M19.90 Unspecified osteoarthritis, unspecified site

== ENCOUNTER 2018-10-11 07:21 | Emergency (ER) | payer MEDICARE ==
[2018-10-11 07:35] VITALS: BMI 38.0
[2018-10-11 07:36] VITALS: O2SAT 98
[2018-10-11] MEDS ORDERED: Sodium Chloride 0.9% 1,000 ML IV STA (07:54)
[2018-10-11 08:26] LABS: BASO % 0.7 % (0.0-2.0); EOS # 0.2 K/uL (0.0-0.7); EOS % 3.8 % (0.0-4.0); HEMOGLOBIN 12.9 g/dL (12.0-16.0); LYMPH # 1.2 K/uL (1.0-4.3); LYMPH % 21.3 % (20.0-40.0); MEAN CELL VOLUME 89.7 fl (81.0-99.0); MEAN CORPUSCULAR HEMOGLOBIN 29.7 pg (27.0-31.0); MEAN CORPUSCULAR HGB CONC 33.1 g/dL (33.0-37.0); MEAN PLATELET VOLUME 8.6 fl (7.2-11.7); MONO # 0.3 K/uL (0.0-0.8); MONO % 5.7 % (0.0-10.0); NEUT # 3.8 K/uL (1.8-7.0); NEUT % 68.5 % (50.0-75.0); NRBC % 0.1 % (0.0-0.0); RBC 4.36 Mil/uL (3.80-5.20); RED CELL DISTRIBUTION WIDTH 13.3 % (11.5-14.5); WHITE BLOOD COUNT 5.5 K/uL (4.8-10.8)
--- NOTE | 2018-10-11 08:32 | ED PDOC ---
HPI:Nausea, Vomiting, Diarrhea Time Seen by Provider: 10/11/18 07:40 Chief Complaint (Nursing): GI Problem Chief Complaint (Provider): GI Problem History Per: Patient History/Exam Limitations: no limitations Onset/Duration Of Symptoms: Days (x1) Current Symptoms Are (Timing): Still Present Associated Symptoms: Nausea, Vomiting. denies: Fever, Diarrhea, Chest Pain Additional Complaint(s): 68 year old female with a past medical history of diabetes, hypertension, allergies, and dyslipidemia who is presenting to the ED for evaluation of frontal headache associated with nausea and vomiting onset last night. Patient states that dizziness is worse with movement and change in position. She admits that the headache is moderately painful and denies any chest pain, shortness of breath, abdominal pain, diarrhea, fevers, or cough. PMD: Dr. Hall Past Medical History Reviewed: Historical Data, Nursing Documentation, Vital Signs Vital Signs: Last Vital Signs Temp 97 F L 10/11/18 07:35 Pulse 67 10/11/18 07:35 Resp 20 10/11/18 07:35 BP 159/81 H 10/11/18 07:35 Pulse Ox 98 10/11/18 07:35 - Medical History PMH: Anemia, Arthritis, Asthma, Bronchitis, Gastritis, HTN, Hyperch olesterolemia, Hyperlipidemia Denies: HIV, Chronic Kidney Disease - Surgical History Surgical History: Cholecystectomy, Other surgeries: right knee replacement - Family History Family History: States: Hypertension - Social History Current smoker - smoking cessation education provided: No Alcohol: None Drugs: Denies - Immunization History Hx Tetanus Toxoid Vaccination: No Hx Influenza Vaccination: Yes Hx Pneumococcal Vaccination: Yes - Home Medications Home Medications: Ambulatory Orders Medication Instructions Recorded Albuterol HFA [Ventolin HFA 90 2 puff INH Q4H PRN 11/10/16 mcg/actuation (8 g)] Aspirin [Ecotrin] 81 mg PO DAILY 11/10/16 Atorvastatin [Lipitor] 10 mg PO DAILY tab 03/03/17 Budesonide/Formoterol Fumarate 1 inh INH DAILY 09/11/18 [Symbicort 160-4.5 Mcg Inhaler] Levocetirizine Dihydrochloride 5 mg PO DAILY 09/11/18 [Xyzal] Losartan [Cozaar] 50 mg PO DAILY 09/11/18 Montelukast [Singulair] 10 mg PO DAILY 09/11/18 Meclizine [Antivert] 25 mg PO Q6 PRN #12 tab 10/11/18 Metoclopramide [Reglan] 10 mg PO Q6 PRN #12 tab 10/11/18 - Allergies Allergies/Adverse Reactions: Allergies Allergy/AdvReac Type Severity Reaction Status Date / Time No Known Allergies Allergy Verified 03/01/17 11:06 Review of Systems ROS Statement: Except As Marked, All Systems Reviewed And Found Negative Constitutional: Negative for: Fever Cardiovascular: Negative for: Chest Pain Respiratory: Negative for: Cough, Shortness of Breath Gastrointestinal: Positive for: Nausea, Vomiting. Negative for: Abdominal Pain, Diarrhea Neurological: Positive for: Headache, Dizziness Physical Exam - Reviewed Nursing Documentation Reviewed: Yes Vital Signs Reviewed: Yes - Physical Exam Appears: Positive for: Non-toxic, No Acute Distress, Uncomfortable Head Exam: Positive for: ATRAUMATIC, NORMAL INSPECTION, NORMOCEPHALIC Skin: Positive for: Normal Color, Warm, DRY Eye Exam: Positive for: EOMI, Normal appearance, PERRL ENT: Positive for: Other (dry muscous membranes ) Neck: Positive for: Normal, Painless ROM Cardiovascular/Chest: Positive for: Regular Rate, Rhythm. Negative for: Murmur Respiratory: Positive for: Normal Breath Sounds. Negative for: Respiratory Distress Gastrointestinal/Abdominal: Positive for: Normal Exam, Soft. Negative for: Tenderness Extremity: Positive for: Normal ROM. Negative for: Deformity, Swelling Neurological/Psych: Positive for: Awake, Alert, Normal Tone, Oriented. Negative for: Motor/Sensory Deficits - Laboratory Results Result Diagrams: 10/11/18 08:05 10/11/18 08:05 - ECG O2 Sat by Pulse Oximetry: 98 (RA) Pulse Ox Interpretation: Normal Medical Decision Making Medical Decision Making: Time: 7:54 Impression: 68 year old female presenting with acute vertiginous dizziness associated with headache and vomiting Plan: --CT head --EKG --CMP --Lact acid, plasma --Lipase --ED urine dipstick --CBC --Antivert 25 mg PO --IV fluids --Reglan 10 mg IVPB --Urinalysis Head CT: FINDINGS: HEMORRHAGE: No intracranial hemorrhage. BRAIN: Normal rendon-white matter differentiation and density are appreciated throughout the cerebrum and cerebellum with the brainstem appearing unremarkable as well. There is no mass effect. There is no suspicious extra-axial fluid collection and the midline brain anatomy appears diffusely unremarkable. VENTRICLES: Unremarkable. No hydrocephalus. CALVARIUM: Unremarkable. PARANASAL SINUSES: Unremarkable as visualized. No significant inflammatory changes. MASTOID AIR CELLS: Unremarkable as visualized. No inflammatory changes. OTHER FINDINGS: None. IMPRESSION: Stable unremarkable unenhanced head CT compared to 04/09/2014 CT. 10:15 Labs show no clinically significant abnormalities. Patient states that headache and nausea resolved with marketed improvement in dizziness. She is medically stable for discharge home. Scribe Attestation: Documented by Agueda Rodriguez, acting as a scribe for Chet Farley MD. Provider Scribe Attestation: All medical record entries made by the Scribe were at my direction and pers onally dictated by me. I have reviewed the chart and agree that the record accurately reflects my personal performance of the history, physical exam, medical decision making, and the department course for this patient. I have also personally directed, reviewed, and agree with the discharge instructions and disposition. Disposition - Clinical Impression Clinical Impression: Viral illness, Vertigo - Patient ED Disposition Is Patient to be Admitted: No - Disposition Disposition: Routine/Home Disposition Time: 10:20 Condition: STABLE Prescriptions: Meclizine [Antivert] 25 mg PO Q6 PRN #12 tab PRN Reason: Dizziness Metoclopramide [Reglan] 10 mg PO Q6 PRN #12 tab PRN Reason: headache/nausea/vomiting Instructions: Vertigo (a Type of Dizziness), Viral Syndrome (DC) Forms: [employer] (French) Print Language: ESTONIAN
[2018-10-11 08:40] LABS: ALB/GLOB RATIO 1.3 (1.0-2.1); ALBUMIN 4.2 g/dL (3.5-5.0); ALT/SGPT 28 U/L (9-52); AST/SGOT 28 U/L (14-36); BLOOD UREA NITROGEN 18 mg/dl (7-17); CALCIUM 9.1 mg/dL (8.4-10.2); GFR NON-AFRICAN AMERICAN > 60; LIPASE 200 U/L (23-300)
--- NOTE | 2018-10-11 08:54 | CT ---
Date of service: 10/11/2018 PROCEDURE: CT HEAD WITHOUT CONTRAST. HISTORY: headache COMPARISON: Unenhanced head CT 04/09/2014. TECHNIQUE: Axial computed tomography images were obtained through the head/brain without intravenous contrast. Radiation dose: Total exam DLP = 741.95 mGy-cm. This CT exam was performed using one or more of the following dose reduction techniques: Automated exposure control, adjustment of the mA and/or kV according to patient size, and/or use of iterative reconstruction technique. FINDINGS: HEMORRHAGE: No intracranial hemorrhage. BRAIN: Normal rendon-white matter differentiation and density are appreciated throughout the cerebrum and cerebellum with the brainstem appearing unremarkable as well. There is no mass effect. There is no suspicious extra-axial fluid collection and the midline brain anatomy appears diffusely unremarkable. VENTRICLES: Unremarkable. No hydrocephalus. CALVARIUM: Unremarkable. PARANASAL SINUSES: Unremarkable as visualized. No significant inflammatory changes. MASTOID AIR CELLS: Unremarkable as visualized. No inflammatory changes. OTHER FINDINGS: None. IMPRESSION: Stable unremarkable unenhanced head CT compared to 04/09/2014 CT.
[2018-10-11 09:21] LABS: SQUAMOUS EPITHIAL 5 /hpf (0-5); URINE BILIRUBIN NEGATIVE (NEGATIVE); URINE BLOOD NEGATIVE (NEGATIVE); URINE CLARITY CLEAR (Clear); URINE COLOR YELLOW (YELLOW); URINE GLUCOSE (UA) NEG (NEGATIVE); URINE LEUKOCYTE ESTERASE NEG Leu/uL (Negative); URINE PROTEIN NEGATIVE (NEGATIVE); URINE UROBILINOGEN 0.2-1.0 mg/dL (0.2-1.0)
--- NOTE | 2018-10-11 09:35 | CARD ---
APPROVED REPORT Date of service: 10/11/2018 EKG Measurement Heart [id number] <Conclusion> Normal sinus rhythm Normal ECG
[2018-10-11 11:35] VITALS: BP 140/80; PULSE 75; RESP 21; TEMP 97.7
== END 2018-10-11 12:05 | disposition home or self-care (01) ==
LOC: H.ER 07:21
DX: B34.9 Viral infection, unspecified (principal); R42 Dizziness and giddiness; E78.00 Pure hypercholesterolemia, unspecified; I10 Essential (primary) hypertension; Z79.899 Other long term (current) drug therapy
CPT/HCPCS: 70450; 80053; 81003; 83605; 83690; 85025; 93005; 96374; 99283; J2765; J7030